=== PATIENT | male | born 1995 | race Caucasian/White ===

== ENCOUNTER 2018-05-14 14:38 | Emergency (ER) | payer MEDICARE, MEDICAID, SELFPAY ==
[2018-05-14 15:14] VITALS: BP 125/79; PULSE 60; RESP 18; TEMP 36.6
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
[2018-05-14] MEDS: Rabies Immune Globulin 1,500 UNIT/5 ML VIAL 1800 UNITS IM (16:20)
--- NOTE | 2018-05-14 16:53 | NUR.NOTE ---
Nursing Note: Faxed to [facility] [employer] who follow up on animal bites the Animal Bite Report form. Roya Miranda Fax [phone]
== END 2018-05-14 16:51 | disposition home or self-care (01) ==
PROVIDERS: Emergency Provider Physician Assistant; PCP Nurse Practitioner
DX: S71.152A Open bite, left thigh, initial encounter (principal); W54.0XXA Bitten by dog, initial encounter
CPT/HCPCS: 90471; 96372; 99284; 90675; 99282

== ENCOUNTER 2018-05-18 01:24 | Outpatient (RCR) | payer MEDICARE, MEDICAID, SELFPAY | END 2018-06-05 23:59 | disposition home or self-care (01) | LOC: INF 01:24 | PROVIDERS: PCP Nurse Practitioner; Visit Provider Internal Medicine Medical Oncology | DX: R69 Illness, unspecified (principal) ==

== ENCOUNTER 2018-05-19 02:03 | Outpatient (RCR) | payer MEDICARE, MEDICAID, SELFPAY | END 2018-06-05 23:59 | disposition home or self-care (01) | LOC: INF 02:03 | PROVIDERS: PCP Nurse Practitioner; Visit Provider Physician Assistant | DX: R69 Illness, unspecified (principal) ==

== ENCOUNTER 2019-03-08 20:09 | Emergency (ER) | payer MEDICARE, MEDICAID, SELFPAY ==
[2019-03-08 20:13] VITALS: BP 135/87; PULSE 101; RESP 18; TEMP 37.1; O2SAT 97
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
== END 2019-03-08 21:19 | disposition home or self-care (01) ==
PROVIDERS: Emergency Provider Nurse Practitioner Family; PCP Nurse Practitioner
DX: S62.111A Displaced fracture of triquetrum [cuneiform] bone, right wrist, initial encounter for closed fracture (principal); S60.221A Contusion of right hand, initial encounter; W22.8XXA Striking against or struck by other objects, initial encounter
CPT/HCPCS: 29125; 99283; 73130; 99282; L3908

== ENCOUNTER 2019-10-07 20:07 | Emergency (ER) | payer MEDICARE, MEDICAID, SELFPAY ==
[2019-10-07 20:11] VITALS: BP 143/92; PULSE 105; RESP 16; TEMP 36.2; O2SAT 96
--- NOTE | 2019-10-07 20:13 | ED.GENADUL_ITS ---
Discharge Plan Disposition Patient Disposition: HOME Condition: Good Discharge Details Chief Complaint: Orthopedic Clinical Impression: Closed fracture of phalanx of ring finger Primary Care Provider: Erica Khan ED Provider: Florentin Muñiz Home Meds and New Rx's Prescriptions: No Action risperidone [Risperdal] 2 MG tablet 2 mg PO DAILY Qty: 90 RF: 0 escitalopram oxalate 20 mg tablet 20 mg PO DAILY Qty: 90 RF: 0 lamotrigine [Lamictal] 25 mg tablet 50 mg PO DAILY RF: 0 methylphenidate HCl 20 mg Tablet 20 mg PO BID RF: 0 Discharge Instructions Instructions: Finger Fracture (ED) Additional Instructions: Please use the splint as directed for the next 1 to 2 weeks. Please take Tylenol and Motrin as needed for pain. As we discussed you do not want to follow-up with the event specialist food demonstrator, however if you do change your mind please contact them at the provided numbers. If you notice any worsening of your symptoms, or any new symptoms such as change in the color of your skin, decreased sensation, worsening pain, vomiting, diarrhea, fever, chills, shortness of breath, chest pain, numbness, weakness, or fainting , please return immediately to the emergency department for reevaluation. Please follow up with your primary care provider as soon as possible for reassessment and reevaluation. As always, it was a pleasure participating in your medical care today. Referrals: Melo Crowley MD [ [facility] STAFF PHYSICIAN] - Jacky Arauz MD [ [facility] STAFF PHYSICIAN] - Brian Toribio MD [ [facility] STAFF PHYSICIAN] - Medical Decision Making 24-year-old male who presents with slight swelling bruising mild pain in his left ring finger in his nondominant hand after punching a wall. Exam demonstrates mild swelling, mild bruising in the finger, no pain in the hand itself, no atypical internal or external rotation on flexion of the finger. Reduced flexion and extension of the distal tip. Neurovascular exam is otherwise intact. Patient does not want any medications for pain at this point. He states that he is here specifically to get an x-ray and that is all. We will get an x-ray, likely splint and reassess. 8:35 PM X-ray results demonstrate fractures of the fourth middle and distal phalanxes. The patient was splinted. Patient continues to refuse pain meds. Patient states extremely specifically that he does not want any follow-up whatsoever, he does not believe in going to see doctors, he does not want to see an event specialist food demonstrator. We will give him the contact numbers for event specialist food demonstrator, but respecting his wishes we will hold off on a formal consult. I discussed my recommendations for orthopedic follow-up as well as primary care provider follow-up. Patient will be discharged home respecting his wishes. Recommend to keep the splint in place for the next 1 to 2 weeks. Discussed red flags which to return. I have extensively reviewed the treatment plan and discharge instructions with the patient and their family. I have addressed all patient concerns at this time. The patient and family was made aware of what symptoms to monitor for that would warrant a return to the emergency department. Discussed the plan with the patient and family, they demonstrate verbal understanding and agreement with our assessment and plan at this time. FINDINGS: Bones/joints: Minimally displaced fractures through dorsal aspects of bases of the 4th middle and distal phalanges. There is nondisplaced fracture through the volar aspect, base of the middle phalanx and volar subluxation of the middle phalanx with respect to the proximal. Soft tissues: Soft tissue swelling. IMPRESSION: Fractures of 4th middle and distal phalanges. Thank you for allowing us to participate in the care of your patient. Dictated and Authenticated by: Carmelo Fitch DO 10/07/2019 8:35 PM Eastern Time ([place] & [place]) HPI General Date/Time Provider Initiated Documentation: 10/07/19 20:08 . HPI Narrative: 24-year-old male presents today for evaluation of pain in his left ring finger. Few hours ago the patient punched a wall in anger. He had pain bruising and swelling in his ring finger on his left hand. He is right-hand dominant. He states that it feels slightly dull in the finger, but he is still able to feel. He has some difficulty bending the most distal aspect of the finger. Patient states that I do not feel pain at all, and so I do not feel pain now. Patient denies any other pain in his hand arm wrist or elbow. He has no other complaints at this time. He has not taken any medications states specifically that he wants no medications for pain right now. No other modifying factors. Related Data Home Medications Medication Instructions Recorded Confirmed risperidone [Risperdal] 2 mg PO DAILY #90 tab-cap 03/22/18 10/07/19 escitalopram oxalate 20 mg tablet 20 mg PO DAILY #90 tab-cap 02/20/19 10/07/19 methylphenidate HCl 20 mg PO BID 03/08/19 10/07/19 lamotrigine 25 mg tablet 50 mg PO DAILY tab 05/18/19 10/07/19 Previous Rx's Medication Instructions Recorded risperidone [Risperdal] 2 mg PO DAILY #90 tab-cap 03/22/18 escitalopram oxalate 20 mg tablet 20 mg PO DAILY #90 tab-cap 02/20/19 Allergies Allergy/AdvReac Type Severity Reaction Status Date / Time No Known Allergies Allergy Unverified 10/07/19 20:15 General MELCHOR: 4 Review of Systems All systems reviewed & are unremarkable except as noted in HPI and below PFSH Social History Smoking/Tobacco Use Status: Current every day Tobacco Type: cigarettes Alcohol Intake: current Alcohol Intake frequency: a few times a month Alcohol type: beer Drug use: Daily Substance use type: does not use Do you feel safe at home: Yes Do you feel safe in your relationship?: Yes Additional Social history: pt is not alone to assess privately Exam Narrative Exam Narrative: 1.Const: Well-nourished, Well-developed, appearing stated age 2.Eyes: PERRL, no conjunctival injection, and symmetrical lids. 3.ENT: Atraumatic external nose and ears. Moist MM. Neck: Symmetric, trachea midline, No thyromegaly. 4.CVS: +S1/S2, No murmurs or gallops. Peripheral pulses 2+ and equal in all ext remities. Brisk capillary refill in all extremities. 5.RESP: Unlabored respiratory effort. Clear to auscultation bilaterally. No wheezes rales or rhonchi 6.GI: Soft, Nontender/Nondistended, No hepatosplenomegaly. No guarding or rebound. 7.MSK: Normocephalic, Extremities w/o deformity or ttp No cyanosis or clubbing. Patient's left ring finger is slightly swollen, mild bruising is noted over the proximal phalanx. Slight swelling throughout, normal flexion and extension at the MCP joint, PIP joint, but notably reduced flexion and extension at the DIP joint. Sensation intact throughout, two-point discrimination present up to 5 mm. Brisk capillary refill is present. No evidence of significant warmth or signs of cellulitis. 8.Skin: Warm, Dry. No rashes or lesions. 9.Neuro: leather toggler II-XII grossly intact. Sensation grossly intact, no focal neurologic deficits. 10.Psych: (AAO) x3. Appropriate mood and affect
--- NOTE | 2019-10-07 20:14 | DI.RAD_ITS ---
EXAM: XR FINGER LT RING INDICATION: punched wall, r/o fx. COMPARISON: No previous for comparison. TECHNIQUE: 2D digital imaging was performed. FINDINGS: There is a mildly displaced fracture involving the posterior aspect of the base of the distal phalanx of the left ring finger. There is a comminuted fracture through the base of the middle phalanx of the left ring finger. The f racture is intra-articular. There is moderate displacement of the dorsal fracture fragment. There is soft tissue swelling of the ring finger. IMPRESSION: Fractures involving the middle and distal phalanges of the left ring finger.
--- NOTE | 2019-10-07 20:33 | NUR.NOTE ---
Nursing Note: applied aluminum splint to left ring finger
--- NOTE | 2019-10-07 20:34 | DI.VRAD_ITS ---
PROCEDURE INFORMATION: Exam: XR Left Finger(s) Exam date and time: 10/07/2019 8:23 PM Age: 24 years old Clinical indication: Pain; Finger(s); Left; Patient HX: Punched wall; Additional info: R/O FX TECHNIQUE: Imaging protocol: XR Left fingers. Views: Minimum 2 views. COMPARISON: No relevant prior studies available. FINDINGS: Bones/joints: Minimally displaced fractures through dorsal aspects of bases of the 4th middle and distal phalanges. There is nondisplaced fracture through the volar aspect, base of the middle phalanx and volar subluxation of the middle phalanx with respect to the proximal. Soft tissues: Soft tissue swelling. IMPRESSION: Fractures of 4th middle and distal phalanges. Dictated and Authenticated by: Carmelo Fitch MD. Ordering:FADUMO Lerma MD
== END 2019-10-07 20:40 | disposition home or self-care (01) ==
LOC: ER 20:45
PROVIDERS: Emergency Provider Student in an Organized Health Care Education/Training Program; PCP Nurse Practitioner
DX: S62.625A Displaced fracture of middle phalanx of left ring finger, initial encounter for closed fracture (principal); S62.635A Displaced fracture of distal phalanx of left ring finger, initial encounter for closed fracture; W22.8XXA Striking against or struck by other objects, initial encounter
CPT/HCPCS: 26720; 73140

== ENCOUNTER 2021-04-23 16:21 | Emergency (ER) | payer MEDICARE, MEDICAID, SELFPAY ==
--- NOTE | 2021-04-23 16:22 | W.ED.GENAD ---
Discharge Plan Disposition Patient Disposition: HOME Condition: Stable Discharge Details Clinical Impression: Dental infection Primary Care Provider: Erica Khan ED Provider: Vasile Kuhn Home Meds and New Rx's Prescriptions: New amoxicillin 875 mg tablet 875 mg PO BID Qty: 20 RF: 0 Continued risperidone [Risperdal] 2 MG tablet 2 mg PO DAILY Qty: 90 RF: 0 escitalopram oxalate 20 mg tablet 20 mg PO DAILY Qty: 90 RF: 0 lamotrigine [Lamictal] 25 mg tablet 50 mg PO DAILY RF: 0 gabapentin 600 mg tablet 600 mg PO QID RF: 0 trazodone 50 mg tablet 50 mg PO QHS RF: 0 methylphenidate HCl 20 mg Tablet 20 mg PO TID RF: 0 Discharge Instructions Instructions: Dental Abscess (ED) Additional Instructions: Amoxicillin as directed. [id number] Tylenol and/or Motrin as directed for discomfort. Cool and/or warm compresses every 2 hours for 20 minutes. Salt water swish and spit as tolerated. Please watch for new or worsening symptoms and return to the ER for any concerns. I do strongly recommend that she quit smoking. I am providing you with the local dental list help expedite outpatient dental care if you are unable to be seen by the dentist who you are hopefully seen by tomorrow. Discharge Data Discharge Date/Time-TO BE ENTERED AT DEPARTURE: 04/23/21 17:01 Medical Decision Making 26-year-old gentleman, smokes 2 packs cigarettes daily, poor decision at baseline, contact his dentist but unable to be seen until obese tomorrow. Reports dental pain, right upper, felt a pop and had a foul taste in his mouth. He is afebrile, no evidence of trismus, airway is patent, appears well, nontoxic. We discussed smoking cessation. There is no clear abscess that requires I&D at this time. Will initiate amoxicillin therapy here in the ER and provided prescription for 875 mg twice daily over the next 10 days. Discussed [id number] medication treatment and I will provide him with a local dentist list to help expedite outpatient care. Standard discharge and return precautions given. This documentation was generated using Med[employer] system, please disregard any oddities of phrase or misspellings. Medical Records Medical records reviewed: Yes I reviewed the patient's medical records. HPI General Mode of arrival: ambulatory. Date/Time Provider Initiated Documentation: 04/23/21 16:21. Limitations to Documentation: no limitations. Information obtained by: patient. HPI Narrative: This is a 26-year-old male, smokes 2 packs of cigarettes daily, past medical history that includes ADHD and bipolar, presents to the ER reporting right upper dental pain over the past 2-3 days. Patient states a few hours ago he felt a pop and had bad taste in his mouth. Patient reports poor dentition at baseline, does not have a dentist as no local dentist or taking new providers. He denies ear pain, fever, difficulty swallowing, speaking, breathing. Patient states this feels like a very typical dental infection is requesting antibiotics. At this time he has no additional questions or concerns. Related Data Home Medications Medication Instructions Recorded Confirmed risperidone [Risperdal] 2 mg PO DAILY #90 tab-cap 03/22/18 04/23/21 escitalopram oxalate 20 mg tablet 20 mg PO DAILY #90 tab-cap 02/20/19 04/23/21 methylphenidate HCl 20 mg PO TID 03/08/19 04/23/21 lamotrigine 25 mg tablet 50 mg PO DAILY tab 05/18/19 04/23/21 amoxicillin 875 mg PO BID #20 tab 04/23/21 gabapentin 600 mg PO QID 04/23/21 04/23/21 trazodone 50 mg PO QHS 04/23/21 04/23/21 Previous Rx's Medication Instructions Recorded risperidone [Risperdal] 2 mg PO DAILY #90 tab-cap 03/22/18 escitalopram oxalate 20 mg tablet 20 mg PO DAILY #90 tab-cap 02/20/19 amoxicillin 875 mg PO BID #20 tab 04/23/21 Allergies Allergy/AdvReac Type Severity Reaction Status Date / Time No Known Allergies Allergy Unverified 04/23/21 16:27 General MELCHOR: 4 Review of Systems Constitutional Constitutional: Denies fever(s) and Denies headache(s) ENT Ears, Nose, Mouth, and Throat: Denies headache(s), Denies neck pain and Denies sore throat Cardiovascular Cardiovascular: Denies chest pain and Denies dyspnea Respiratory Respiratory: Denies dyspnea Musculoskeletal Musculoskeletal: Denies neck pain Integumentary/Breasts Skin/Breast: Denies erythema and Denies rash Neurologic Neurologic: Denies headache(s) [facility] Medical History ADHD Asperger's disorder Bipolar 1 disorder Bipolar disorder (02/11/18) Depressed bipolar disorder Family History Mother No problems noted. Father No problems noted. Social History Smoking/Tobacco Use Status: Current every day Tobacco Type: cigarettes Smoking risk assessment performed?: Yes Alcohol Intake: former Drug use: Daily Substance use type: marijuana Do you feel safe at home: Yes Do you feel safe in your relationship?: Yes Additional Social history: pt is not alone to assess privately Exam Const General: cooperative, healthy appearing, comfortable and no acute distress Orientation: alert and awake HENMT Head: normal to inspection, normocephalic and atraumatic Ears: external ears normal, TM's normal bilaterally and EAC's normal General nose exam: external nose normal Face and sinus: normal facial exam Mouth: oral mucosae normal and moist mucous membranes Teeth and gingiva: poor dentition Teeth image: 1. Point tenderness tooth #3, diffuse mild erythema and swelling to the localized buccal mucosa. No drainage or pointing abscess. No trismus. Airway is patent. Throat: posterior oropharynx normal Eyes General: appearance normal, both eyes and all related structures Conjunctivae: conjunctivae normal Neck Neck: normal visual inspection, full ROM, no lymphadenopathy, trachea midline, supple and nontender Resp Effort & Inspection: normal respiratory effort and able to speak in complete sentences Skin General skin exam: no rashes or lesions noted Neuro General: patient alert, patient awake, moves all extremities and no focal motor deficits Cognition: normal cognition Speech: speech normal Sensory Exam: no sensory deficits noted Psych Appearance: grossly normal Mental Status: mental status grossly normal
[2021-04-23 16:23] VITALS: BP 143/89; PULSE 68; RESP 17; TEMP 36.3; O2SAT 97
== END 2021-04-23 17:01 | disposition home or self-care (01) ==
PROVIDERS: Emergency Provider Physician Assistant; PCP Nurse Practitioner
DX: R68.84 Jaw pain (principal); K04.7 Periapical abscess without sinus
CPT/HCPCS: 99283

== ENCOUNTER 2021-05-23 04:35 | Emergency (ER) | payer MEDICARE, MEDICAID, SELFPAY ==
[2021-05-23 04:42] VITALS: BP 132/74; PULSE 87; RESP 18; TEMP 36.7; O2SAT 97
--- NOTE | 2021-05-23 04:58 | ED.GENADUL_ITS ---
Discharge Plan Disposition Patient Disposition: HOME Condition: Stable Discharge Details Clinical Impression: Nausea and vomiting Primary Care Provider: Erica Khan ED Provider: Valentino Strongs and New Rx's Prescriptions: New ondansetron 4 mg Tablet,Disintegrating 4 mg PO BID PRN (Reason: Nausea And Vomiting) Qty: 3 RF: 0 Continued risperidone [Risperdal] 2 MG tablet 2 mg PO DAILY Qty: 90 RF: 0 escitalopram oxalate 20 mg tablet 20 mg PO DAILY Qty: 90 RF: 0 lamotrigine [Lamictal] 25 mg tablet 50 mg PO DAILY RF: 0 gabapentin 600 mg tablet 600 mg PO QID RF: 0 trazodone 50 mg tablet 50 mg PO QHS RF: 0 methylphenidate HCl 20 mg Tablet 20 mg PO TID RF: 0 Discharge Instructions Instructions: Acute Nausea and Vomiting (ED) Additional Instructions: Covid test is pending. You should quarantine until results has returned. Recommend clear liquid/bland diet until your nausea and vomiting is better c ontrolled. You may use the Zofran as needed for nausea vomiting. Follow-up with primary care next week if not improving. Return to ED for mental status changes, shortness of breath, chest pain, persistent vomiting, abdominal pain. Stand Alone Forms: PENDING COVID-19 TESTING Referrals: Erica Khan, [employer] [Primary Care Provider] - Discharge Data Discharge Date/Time-TO BE ENTERED AT DEPARTURE: 05/23/21 05:32 Medical Decision Making Patient presenting with cough, vomiting, diarrhea for the last few days. Denies fever, shortness of breath, chest pain, abdominal pain. Is not vaccinated against Covid. Exam is unremarkable with normal vitals, clear lungs, benign abdomen. Will symptomatically treat his nausea vomiting with Zofran. Covid swab obtained and sent. Patient to quarantine until results returned. Follow-up with primary care next week if not better. Return to ED for mental status changes, shortness of breath, chest pain, persistent vomiting, abdominal pain. HPI General Mode of arrival: ambulatory . Date/Time Provider Initiated Documentation: 05/23/21 04:58 . Limitations to Documentation: no limitations . Information obtained by: patient and RN notes reviewed . HPI Narrative: Patient presents to the ED with complaint of malaise, vomiting and diarrhea, cough. He denies fever or sweats. He denies chest pain or shortness of breath. Has relatively persistent nausea but denies abdominal pain. He is not vaccinated against Covid. He does smoke regularly but states the cough is new. He denies headache, arthralgias, myalgias, rash. Related Data Home Medications Medication Instructions Recorded Confirmed risperidone [Risperdal] 2 mg PO DAILY #90 tab-cap 18 05/23/21 escitalopram oxalate 20 mg tablet 20 mg PO DAILY #90 tab-cap 02/20/19 05/23/21 methylphenidate HCl 20 mg PO TID 03/08/19 05/23/21 lamotrigine 25 mg tablet 50 mg PO DAILY tab 05/18/19 05/23/21 gabapentin 600 mg PO QID 04/23/21 05/23/21 trazodone 50 mg PO QHS 04/23/21 05/23/21 ondansetron 4 mg PO BID PRN #3 tab 05/23/21 Previous Rx's Medication Instructions Recorded risperidone [Risperdal] 2 mg PO DAILY #90 tab-cap 03/22/18 escitalopram oxalate 20 mg tablet 20 mg PO DAILY #90 tab-cap 02/20/19 ondansetron 4 mg PO BID PRN #3 tab 05/23/21 Allergies Allergy/AdvReac Type Severity Reaction Status Date / Time No Known Allergies Allergy Unverified 05/23/21 04:46 General Stated Complaint: GenMedical MELCHOR: 4 Review of Systems Narrative: As documented in HPI otherwise negative as below. Const: no fever, chills, weakness Resp: no SOB, pleuritic pain CV: no CP, diaphoresis, edema, syncope GI: no abdominal pain Neuro: no headache, numbness, focal weakness, confusion [facility] Medical History ADHD Asperger's disorder Bipolar 1 disorder Bipolar disorder (02/11/18) Depressed bipolar disorder Family History Mother No problems noted. Father No problems noted. Social History Smoking/Tobacco Use Status: Current every day Tobacco Type: cigarettes Smoking risk assessment performed?: Yes Alcohol Intake: former Drug use: Daily Substance use type: marijuana Do you feel safe at home: Yes Do you feel safe in your relationship?: Yes Additional Social history: pt is not alone to assess privately Exam Narrative Exam Narrative: Const: WDWN male in NAD. HEENT: NC/AT. Normal facial exam. TMs clear. OP clear. Eyes: Normal conjunctiva and sclera. Neck: Supple. Trachea midline. Lungs: Normal respiratory effort. Lungs are clear. Cor: RRR without murmur/gallop. Good radial pulses. GI: Soft. NT/ND. No guarding or rebound. Neuro: A+O x 3. Normal speech, mentation, gait. Cranial nerves II - XII grossly intact. No gross motor or sensory deficit. Ext: No C/C/E. Skin: Warm and dry without rash. Course Vital Signs Vital signs: Vital Signs Temperature 98.1 F 05/23/21 04:42 Pulse 87 05/23/21 04:42 Respiratory Rate 18 05/23/21 04:42 Blood Pressure 132/74 05/23/21 04:42 Pulse Oximetry 97 05/23/21 04:42 Temperature 98.1 F 05/23/21 04:42 Temperature Source Oral 05/23/21 04:42 Pulse 87 05/23/21 04:42 Respiratory Rate 18 05/23/21 04:42 Respiratory Effort Non-Labored 05/23/21 04:48 Blood Pressure 132/74 05/23/21 04:42 Blood Pressure Position Sitting 05/23/21 04:42 Pulse Oximetry 97 05/23/21 04:42 Oxygen Delivery Method Room Air 05/23/21 04:42 Oxygen Flow Rate 0 05/23/21 04:42 Pain Level 0 05/23/21 04:42
[2021-05-23 05:11] VITALS: RESP 16
[2021-05-23] MEDS: Ondansetron O.D.T. 4 MG TABEF, 3 TABS/BTL PO (05:22)
[2021-05-23] MEDS: Ondansetron O.D.T. 4 MG TABEF PO (05:22)
[2021-05-24 17:20] LABS: COVID-19 RT-PCR UVMMC Result Negative (Negative)
--- NOTE | 2021-05-26 14:58 | NUR.NOTE ---
patient made aware of negative covid test results.
== END 2021-05-23 05:32 | disposition home or self-care (01) ==
LOC: ER 05:11
PROVIDERS: Emergency Provider Emergency Medicine; PCP Nurse Practitioner
DX: R11.2 Nausea with vomiting, unspecified (principal); R05 Cough; M79.10 Myalgia, unspecified site; F17.210 Nicotine dependence, cigarettes, uncomplicated; Z20.822 Contact with and (suspected) exposure to COVID-19; Z03.818 Encounter for observation for suspected exposure to other biological agents ruled out
CPT/HCPCS: 99283; U0003; U0005

== ENCOUNTER 2022-06-03 10:34 | Emergency (ER) | payer MEDICARE, MEDICAID, SELFPAY ==
[2022-06-03 10:49] VITALS: BP 153/104; PULSE 76; RESP 18; TEMP 36.6; O2SAT 100
--- NOTE | 2022-06-03 12:31 | NUR.NOTE ---
Nursing Note: Dr Gallo went to waiting room to evaluate patient and he was not there. Was asked to put him to [facility]BS @ 2262
== END 2022-06-03 12:29 | disposition left before discharge ==
PROVIDERS: PCP Nurse Practitioner
DX: Z53.21 Procedure and treatment not carried out due to patient leaving prior to being seen by health care provider (principal)

== ENCOUNTER 2022-11-04 17:23 | Emergency (ER) | payer MEDICARE, MEDICAID, SELFPAY ==
[2022-11-04 17:27] VITALS: BP 146/101; PULSE 83; RESP 18; TEMP 36.6; O2SAT 100
--- NOTE | 2022-11-04 17:40 | ED.GENADUL_ITS ---
Discharge Plan Disposition Patient Disposition: Home Discharge Details Clinical Impression: Toothache Primary Care Provider: Erica Khan ED Provider: Niyah Norton Home Meds and New Rx's Prescriptions: New amoxicillin-pot clavulanate 875-125 mg tablet 1 tab PO BID 7 Days Qty: 14 0RF No Action risperidone [Risperdal] 2 MG tablet 2 mg PO DAILY Qty: 90 0RF Rx Instructions: In AM escitalopram oxalate 20 mg tablet 20 mg PO DAILY Qty: 90 0RF Rx Instructions: Every morning, per cydney Beauchamp NP [facility] 02/01/19 will continue pt on this, RH lamotrigine [Lamictal] 25 mg tablet 50 mg PO DAILY Rx Instructions: 04/27/19 Cydney Beauchamp gabapentin 600 mg tablet 600 mg PO QID Patient Comments: TAKE ONE TABLET BY MOUTH FOUR TIMES A DAY trazodone 50 mg tablet 50 mg PO QHS Patient Comments: TAKE 1 TO 2 TABLETS BY MOUTH AT BEDTIME methylphenidate HCl 20 mg Tablet 20 mg PO TID ondansetron 4 mg Tablet,Disintegrating 4 mg PO BID PRN (Reason: Nausea And Vomiting) Qty: 3 0RF Discharge Instructions Instructions: Toothache (ED) Additional Instructions: Use the HurriCaine gel as directed up to 3 times daily apply to the affected area with a Q-tip as needed for pain. Take the antibiotic with yogurt or probiotic twice daily as directed. You do need to see a dentist. Rec is good oral hygiene pressure teeth twice daily, rinse your mouth out after eating or drinking anything. Try to stop smoking if you do smoke. Please take Tylenol or Ibuprofen with food every 4-6 hours as needed for pain and swelling. Follow up with primary care provider in 3-5 days. Return to ED sooner if any worsening or concerns. Increase oral fluids. Stand Alone Forms: Work Release Referrals: Erica Khan NP [Primary Care Provider] - 5 days Discharge Data Discharge Date/Time-TO BE ENTERED AT DEPARTURE: 11/04/22 17:57 Medical Decision Making 27-year-old male with past medical history of ADHD, bipolar, Asperger's disorder presents to the ER with chief complaint of right upper jaw pain and tooth pain which is worsened today. He reports that he has been taking Tylenol with little to no relief. He does have a broken right molar no area of abscess or fluctuance noted. He denies any fever chills or ear pain. He reports he is unable to get into a dentist. He is requesting antibiotics. No other associated symptoms. Augmentin first tablet here and 2 to go and HurriCaine benzocaine gel ordered. We will give dental resources home care and follow-up care. This text was generated using [employer] dictation system, please disregard any oddities of phrase or misspellings. HPI General Mode of arrival: ambulatory . Date/Time Provider Initiated Documentation: 11/04/22 17:24 . Limitations to Documentation: no limitations . Information obtained by: patient, RN notes reviewed and old records reviewed . HPI Narrative: 27-year-old male with past medical history of ADHD, bipolar, Asperger's disorder presents to the ER with chief complaint of right upper jaw pain and tooth pain which is worsened today. He reports that he has been taking Tylenol with little to no relief. He does have a broken right molar no area of abscess or fluctuance noted. He denies any fever chills or ear pain. He reports he is unable to get into a dentist. He is requesting antibiotics. No other associated symptoms. Related Data Home Medications Medication Instructions Recorded Confirmed risperidone 2 mg tablet (Risperdal) 2 mg PO DAILY #90 tab-caps 03/22/18 05/23/21 escitalopram oxalate 20 mg tablet 20 mg PO DAILY #90 tab-caps 02/20/19 05/23/21 methylphenidate HCl 20 mg tablet 20 mg PO TID 03/08/19 05/23/21 lamotrigine 25 mg tablet (Lamictal) 50 mg PO DAILY 05/18/19 05/23/21 gabapentin 600 mg tablet 600 mg PO QID 04/23/21 05/23/21 trazodone 50 mg tablet 50 mg PO QHS 04/23/21 05/23/21 ondansetron 4 mg disintegrating 4 mg PO BID PRN Nausea And 05/23/21 tablet Vomiting #3 tabs amoxicillin 875 mg-potassium 1 tab PO BID 7 days #14 tabs 11/04/22 clavulanate 125 mg tablet Previous Rx's Medication Instructions Recorded risperidone 2 mg tablet (Risperdal) 2 mg PO DAILY #90 tab-caps 03/22/18 escitalopram oxalate 20 mg tablet 20 mg PO DAILY #90 tab-caps 02/20/19 ondansetron 4 mg disintegrating 4 mg PO BID PRN Nausea And 05/23/21 tablet Vomiting #3 tabs amoxicillin 875 mg-potassium 1 tab PO BID 7 days #14 tabs 11/04/22 clavulanate 125 mg tablet Allergies Allergy/AdvReac Type Severity Reaction Status Date / Time No Known Allergies Allergy Unverified 05/23/21 04:46 General Stated Complaint: DentalOral MELCHOR: 4 Review of Systems All systems reviewed & are unremarkable except as noted in HPI and below ENT Ears, Nose, Mouth, and Throat: Reports as per HPI, Reports dental pain, Denies dysphagia, Denies dizziness, Denies otalgia, Denies neck mass and Denies sore throat Cardiovascular Cardiovascular: Denies chest pain Gastrointestinal Gastrointestinal: Denies dysphagia Neurologic Neurologic: Denies dizziness PFSH All Active Problems (Updated 11/04/22 @ 17:45 by Niyah Norton NP) Dental infection (Acute) Nausea and vomiting (Acute) Toothache (Acute) Bipolar disorder (Chronic 02/11/18) Cough (Acute) Attention-deficit hyperactivity disorder, unspecified type (Acute 02/11/18) Closed fracture of phalanx of ring finger (Acute) Medical History ADHD Asperger's disorder Bipolar 1 disorder Depressed bipolar disorder Family History Mother No problems noted. Father No problems noted. Social History Smoking/Tobacco Use Status: Current every day Tobacco Type: cigarettes Smoking risk assessment performed?: Yes Alcohol Intake: former Drug use: Daily Substance use type: marijuana Do you feel safe at home: Yes Do you feel safe in your relationship?: Yes Additional Social history: pt is not alone to assess privately Exam HENMT Teeth and gingiva: fair dentition Teeth image: 1. Eroded tooth through the dentin, no surrounding area of fluctuance or drainage noted. Throat: posterior oropharynx normal, tonsils normal and uvula midline Course Vital Signs Vital signs: Vital Signs Temperature 36.6 C 11/04/22 17:27 Pulse 83 11/04/22 17:27 Respiratory Rate 18 11/04/22 17:27 Blood Pressure 146/101 H 11/04/22 17:27 Pulse Oximetry 100 11/04/22 17:27 Temperature 36.6 C 11/04/22 17:27 Temperature Source Tympanic 11/04/22 17:27 Pulse 83 11/04/22 17:27 Respiratory Rate 18 11/04/22 17:27 Respiratory Effort Normal 11/04/22 17:32 Blood Pressure 146/101 H 11/04/22 17:27 Blood Pressure Position Sitting 11/04/22 17:27 Pulse Oximetry 100 11/04/22 17:27 Oxygen Delivery Method Room Air 11/04/22 17:27 Oxygen Flow Rate 0 11/04/22 17:27 Pain Level 9 11/04/22 17:32
[2022-11-04] MEDS: Benzocaine 20% Gel 30 GM JAR MM (17:45)
[2022-11-04] MEDS: Amoxicillin 875/Clav. 125 TAB PO (17:45)
[2022-11-04] MEDS: Amox. 875/Clav. 125, 2 TABS/BTL 1 TAB PO (17:45)
== END 2022-11-04 17:57 | disposition home or self-care (01) ==
PROVIDERS: Emergency Provider Registered Nurse Emergency; PCP Nurse Practitioner
DX: R68.84 Jaw pain (principal)
CPT/HCPCS: 99283; 99284

== ENCOUNTER 2023-04-10 18:45 | Emergency (ER) | payer MEDICARE, MEDICAID, SELFPAY | END 2023-04-10 18:53 | disposition left against medical advice (07) | DX: Z53.21 Procedure and treatment not carried out due to patient leaving prior to being seen by health care provider (principal) ==

== ENCOUNTER 2023-06-20 14:26 | Emergency (ER) | payer MEDICARE, SELFPAY ==
[2023-06-20 14:29] VITALS: BP 134/74; PULSE 81; RESP 18; TEMP 37.1; O2SAT 95
--- NOTE | 2023-06-20 14:39 | ED.GENADUL_ITS ---
Discharge Plan Disposition Patient Disposition: Home Condition: Improving Discharge Details Chief Complaint: DentalOral Clinical Impression: Dental infection Primary Care Provider: None,None ED Provider: Gilberto Thao Home Meds and New Rx's Prescriptions: No Action amoxicillin-pot clavulanate 875-125 mg tablet 1 tab PO BID 10 Days Qty: 20 0RF Rx Instructions: Take with meal. Take 1 pill every 12 hour chlorhexidine gluconate 0.12 % mouthwash 15 ml mucous membrane BID Qty: 750 0RF risperidone [Risperdal] 2 MG tablet 2 mg PO DAILY Qty: 90 0RF Rx Instructions: In AM escitalopram oxalate 20 mg tablet 20 mg PO DAILY Qty: 90 0RF Rx Instructions: Every morning, per cydney Beauchamp [employer] TECH[employer]ICIAN [facility] 02/01/19 will continue pt on this, RH lamotrigine [Lamictal] 25 mg tablet 50 mg PO DAILY Rx Instructions: 04/27/19 Cydney Beauchamp gabapentin 600 mg tablet 600 mg PO QID Patient Comments: TAKE ONE TABLET BY MOUTH FOUR TIMES A DAY trazodone 50 mg tablet 50 mg PO QHS Patient Comments: TAKE 1 TO 2 TABLETS BY MOUTH AT BEDTIME methylphenidate HCl 20 mg Tablet 20 mg PO TID Discharge Instructions Instructions: Dental Abscess (ED) Additional Instructions: Please continue with your antibiotics and anti-inflammatory medications at home. Please return to the emergency department for any worsening symptoms Medical Decision Making 28-year-old male presents with several days of right facial pain and swelling as well as dental pain, started on Augmentin with improvement of facial swelling however has persistent dental pain. Multiple fractured and carious teeth, no discrete periapical abscess, no signs of deep space infection of head or neck, afebrile nontoxic normal voice tolerating secretions. Will perform apical block with bupivacaine, will dose Toradol IM for anti-inflammatory purposes. Given great improvement of swelling and redness to face patient seems to be responding to antibiotics. Given home care instructions and return precautions 14: 50 patient feeling much better after periapical block. 5 cc of 0.5% bupivacaine. Tolerated well HPI General Date/Time Provider Initiated Documentation: 06/20/23 14:32 . HPI Narrative: 28-year-old male presents with several days of right upper tooth abscess, started on Augmentin within the last couple of days, facial swelling has improved however dental pain is persistent. Related Data Home Medications Medication Instructions Recorded Confirmed risperidone 2 mg tablet (Risperdal) 2 mg PO DAILY #90 tab-caps 03/22/18 06/20/23 escitalopram oxalate 20 mg tablet 20 mg PO DAILY #90 tab-caps 02/20/19 06/20/23 methylphenidate HCl 20 mg tablet 20 mg PO TID 03/08/19 06/20/23 lamotrigine 25 mg tablet (Lamictal) 50 mg PO DAILY 05/18/19 06/20/23 gabapentin 600 mg tablet 600 mg PO QID 04/23/21 06/20/23 trazodone 50 mg tablet 50 mg PO QHS 04/23/21 06/20/23 amoxicillin 875 mg-potassium 1 tab PO BID 10 days #20 tabs 06/18/23 06/20/23 clavulanate 125 mg tablet chlorhexidine gluconate 0.12 % 15 ml mucous membrane BID #750 mL 06/18/23 06/20/23 mouthwash Previous Rx's Medication Instructions Recorded risperidone 2 mg tablet (Risperdal) 2 mg PO DAILY #90 tab-caps 03/22/18 escitalopram oxalate 20 mg tablet 20 mg PO DAILY #90 tab-caps 02/20/19 amoxicillin 875 mg-potassium 1 tab PO BID 10 days #20 tabs 06/18/23 clavulanate 125 mg tablet chlorhexidine gluconate 0.12 % 15 ml mucous membrane BID #750 mL 06/18/23 mouthwash Allergies Allergy/AdvReac Type Severity Reaction Status Date / Time No Known Allergies Allergy Unverified 06/18/23 16:58 General Stated Complaint: DentalOral MELCHOR: 4 Review of Systems Narrative: Review of Systems Constitutional: negative Eyes: negative ENT: Dental pain Cardiovascular: negative Respiratory: negative Gastrointestinal: negative : negative Musculoskeletal: negative Skin: negative Neurologic: negative Psych: negative PFSH All Active Problems (Updated 06/20/23 @ 14:51 by Gilberto Thao MD) Dental infection (Acute) Nausea and vomiting (Acute) Dental infection (Acute) Bipolar disorder (Chronic 02/11/18) Cough (Acute) Attention-deficit hyperactivity disorder, unspecified type (Acute 02/11/18) Closed fracture of phalanx of ring finger (Acute) Medical History Depressed bipolar disorder Bipolar 1 disorder Asperger's disorder ADHD Family History Mother No problems noted. Father No problems noted. Social History Smoking/Tobacco Use Status: Current every day Tobacco Type: cigarettes Smoking risk assessment performed?: Yes Alcohol Intake: former Drug use: Daily Substance use type: marijuana Do you feel safe at home: Yes Do you feel safe in your relationship?: Yes Additional Social history: pt is not alone to assess privately Exam Narrative Exam Narrative: Physical Examination General: alert, awake, cooperative, resting comfortably, no acute distress HEENT: normocephalic, atraumatic; PERRL, EOM intact, conjunctiva normal; no nasal discharge; moist mucous membranes; moderate induration/edema to maxillary soft tissue, multiple fractured and carious teeth, no palpable periapical abscess appreciated, soft submental sublingual and submandibular region, normal voice, no stridor Neck: supple, trachea midline; full ROM Chest: normal to inspection Respiratory: normal respiratory effort, speaking in full sentences Course Vital Signs Vital signs: Vital Signs Temperature 37.1 C 06/20/23 14:29 Pulse 81 06/20/23 14:29 Respiratory Rate 18 06/20/23 14:29 Blood Pressure 134/74 06/20/23 14:29 Pulse Oximetry 95 06/20/23 14:29 Temperature 37.1 C 06/20/23 14:29 Temperature Source Oral 06/20/23 14:29 Pulse 81 06/20/23 14:29 Respiratory Rate 18 06/20/23 14:29 Blood Pressure 134/74 06/20/23 14:29 Pulse Oximetry 95 06/20/23 14:29 Oxygen Delivery Method Room Air 06/20/23 14:29 Oxygen Flow Rate 0 06/20/23 14:29
[2023-06-20] MEDS: Ketorolac 15 MG/ML VIAL IM (14:43)
[2023-06-20 14:44] VITALS: BP 132/84; PULSE 80; RESP 14; TEMP 37; O2SAT 98
== END 2023-06-20 14:58 | disposition home or self-care (01) ==
PROVIDERS: Emergency Provider Emergency Medicine
DX: G50.1 Atypical facial pain (principal)
CPT/HCPCS: 64400; 96372; 99284; J1885

== ENCOUNTER 2023-06-30 17:08 | Emergency (ER) | payer SELFPAY ==
[2023-06-30 17:23] VITALS: BP 168/101; PULSE 80; RESP 22; TEMP 37; O2SAT 99
--- NOTE | 2023-06-30 17:32 | ED.GENADUL_ITS ---
Discharge Plan Disposition Patient Disposition: Home Condition: Stable Discharge Details Clinical Impression: Infected dental caries Primary Care Provider: None,None ED Provider: Florentin Marquez Home Meds and New Rx's Prescriptions: New clindamycin HCl 150 mg capsule 450 mg PO TID 10 Days Qty: 90 0RF lidocaine HCl [Lidocaine Viscous] 2 % solution 10 ml mucous membrane QID PRN (Reason: Dental Pain) Qty: 100 0RF Rx Instructions: swish & spit with 10mL by mouth four times per day as needed for acute dental pain Continued risperidone [Risperdal] 2 MG tablet 2 mg PO DAILY Qty: 90 0RF Rx Instructions: In AM escitalopram oxalate 20 mg tablet 20 mg PO DAILY Qty: 90 0RF Rx Instructions: Every morning, per cydney Beauchamp [employer] TECHNICIAN [facility] 02/01/19 will continue pt on this, RH lamotrigine [Lamictal] 25 mg tablet 50 mg PO DAILY Rx Instructions: 04/27/19 Cydney Beauchamp gabapentin 600 mg tablet 600 mg PO QID Patient Comments: TAKE ONE TABLET BY MOUTH FOUR TIMES A DAY trazodone 50 mg tablet 50 mg PO QHS Patient Comments: TAKE 1 TO 2 TABLETS BY MOUTH AT BEDTIME chlorhexidine gluconate 0.12 % mouthwash 15 ml mucous membrane BID Qty: 750 0RF methylphenidate HCl 20 mg Tablet 20 mg PO TID Discharge Instructions Instructions: Clindamycin (By mouth), Chlorhexidine (Into the mouth), Lidocaine (Into the mouth), Dental Caries (ED), Toothache (ED) Additional Instructions: You were seen in the emergency department for your infected dental caries of yo ur right upper molar, the ED cannot give a definitive dental care for this problem. You need to call any and all available dentists in the area including across state lines to try and get this tooth removed. You state that you are on Augmentin, we have no record of this. Please discontinue the amoxicillin- clavulanic acid antibiotic that you are currently on and take the prescribed clindamycin, the clindamycin will cover MRSA bacteria. I have also sent a prescription for viscous lidocaine that will topically numb the mouth if you swish and spit with this 4 times per day-at mealtimes and bedtime. I have refilled your chlorhexidine antibiotic mouth rinse. Please also swish and spit with warm salty water 3 times per day, bacteria do not like very salty environments and this will help heal the gums. You need to be taking 1000 mg of Tylenol every 6 hours without missing doses, for anti-inflammatory effects please take two 220 mg Aleve tablets twice per day 12 hours apart. Please return to the emergency department for any excessive drooling, any increasing facial swelling with redness, extreme vocal changes, inability to open your jaw. Patient was uncooperative and refused to wait for medicines ordered at discharge as well as discharge packet. Referrals: [facility] [Provider Group] (Needs Urgent Extraction) Discharge Data Discharge Date/Time-TO BE ENTERED AT DEPARTURE: 06/30/23 18:06 Medical Decision Making Assessment: 28 y/o M patient presents with acute on chronic dental pain, chronic poor dentition, known fractured R upper 3rd molar that he attempted self removal, no systemic signs or symptoms of illness. No labs necessary Findings are not consistent with peritonsillar abscess or retropharyngeal abscess, not consistent with epiglottitis or trismus, there appears to be no facial swelling or cellulitis and no submandibular swelling indicating salivary gland obstruction. The patient has diffusely poor dentition and needs to see a dentist on an urgent basis, he is taking Augmentin which I plan to upgrade to clindamycin to cover for MRSA, I plan to prescribe viscous lidocaine to aid in local anesthesia, I recommend he take therapeutic dosing of Tylenol and ibuprofen and refilled his chlorhexidine prescription. I did financial health counselor the patient that the ER cannot provide definitive dental care that he needs to follow-up by calling any and all available dentists including across state line in [place] if he cannot find a dentist locally. Counseled on strict return criteria for worsening signs of infection, vocal changes, excessive drooling, trismus, facial swelling with redness. The patient then left without discharge paperwork or acute medicines ordered for him due to impatience. Total time of visit 43 mins. Medical Records Medical records reviewed: Yes I reviewed the patient's medical records. HPI General Date/Time Provider Initiated Documentation: 06/30/23 17:17 . HPI Narrative: 28-year-old male presents with right upper molar dental pain, he states that his tooth has been fractured chronically and he tried pulling some pieces out. He is currently on Augmentin and has chlorhexidine but is almost out of it, he states he has called all dentist in the area and they cannot see him. He has been taking subtherapeutic dosing of alternating Tylenol and NSAID therapy, he does not have viscous lidocaine. He denies fever, denies facial swelling or redness, denies vocal changes or excessive drooling, denies trismus. Related Data Home Medications Medication Instructions Recorded Confirmed risperidone 2 mg tablet (Risperdal) 2 mg PO DAILY #90 tab-caps 03/22/18 06/20/23 escitalopram oxalate 20 mg tablet 20 mg PO DAILY #90 tab-caps 02/20/19 06/20/23 methylphenidate HCl 20 mg tablet 20 mg PO TID 03/08/19 06/20/23 lamotrigine 25 mg tablet (Lamictal) 50 mg PO DAILY 05/18/19 06/20/23 gabapentin 600 mg tablet 600 mg PO QID 04/23/21 06/20/23 trazodone 50 mg tablet 50 mg PO QHS 04/23/21 06/20/23 chlorhexidine gluconate 0.12 % 15 ml mucous membrane BID #750 mL 06/30/23 mouthwash clindamycin HCl 150 mg capsule 450 mg (3 x 150 mg) PO TID dental 06/30/23 infection 10 days #90 caps lidocaine HCl 2 % mucosal solution 10 ml mucous membrane QID PRN 06/30/23 (Lidocaine Viscous) Dental Pain #100 mL Previous Rx's Medication Instructions Recorded risperidone 2 mg tablet (Risperdal) 2 mg PO DAILY #90 tab-caps 03/22/18 escitalopram oxalate 20 mg tablet 20 mg PO DAILY #90 tab-caps 02/20/19 chlorhexidine gluconate 0.12 % 15 ml mucous membrane BID #750 mL 06/30/23 mouthwash clindamycin HCl 150 mg capsule 450 mg (3 x 150 mg) PO TID dental 06/30/23 infection 10 days #90 caps lidocaine HCl 2 % mucosal solution 10 ml mucous membrane QID PRN 06/30/23 (Lidocaine Viscous) Dental Pain #100 mL Allergies Allergy/AdvReac Type Severity Reaction Status Date / Time No Known Allergies Allergy Unverified 06/18/23 16:58 General Stated Complaint: DentalOral MELCHOR: 4 Review of Systems All systems reviewed & are unremarkable except as noted in HPI and below PFSH All Active Problems (Updated 06/30/23 @ 17:39 by LUIS Pruitt) Infected dental caries (Acute) Dental infection (Acute) Nausea and vomiting (Acute) Dental infection (Acute) Bipolar disorder (Chronic 02/11/18) Cough (Acute) Attention-deficit hyperactivity disorder, unspecified type (Acute 02/11/18) Closed fracture of phalanx of ring finger (Acute) Medical History Depressed bipolar disorder Bipolar 1 disorder Asperger's disorder ADHD Family History Mother No problems noted. Father No problems noted. Social History Smoking/Tobacco Use Status: Current every day Tobacco Type: cigarettes Smoking risk assessment performed?: Yes Alcohol Intake: former Drug use: Daily Substance use type: marijuana Do you feel safe at home: Yes Do you feel safe in your relationship?: Yes Additional Social history: pt is not alone to assess privately Exam Const General: uncomfortable and no acute distress Orientation: alert, awake and oriented x3 HENMT Mouth: oral mucosae normal, lip normal, tongue normal, no audible dysphonia, no drooling, No mouth trauma, no muffled voice, no trismus and No restricted motion Teeth and gingiva: abnormal tooth or associated gingiva, caries and other Other: Right upper posterior molar is fractured, there is scant red blood that is not actively bleeding at the gumline, no visible gingival abscess, no purulent material seen, posterior oropharynx is benign. Resp Effort & Inspection: normal respiratory effort and able to speak in complete sentences Cardio Jugular venous pressure: no JVD Rate: regular rate Pulses: radial pulses present Course Vital Signs Vital signs: Vital Signs Temperature 37.0 C 06/30/23 17: Pulse 80 06/30/23 17: Respiratory Rate 22 06/30/23 17: Blood Pressure 168/101 H 06/30/23 17: Pulse Oximetry 99 06/30/23 17: Temperature 37.0 C 06/30/23 17: Pulse 80 06/30/23 17: Respiratory Rate 22 06/30/23 17:23 Blood Pressure 168/101 H 06/30/23 17:23 Pulse Oximetry 99 06/30/23 17:23 Oxygen Delivery Method Room Air 06/30/23 17:23 Oxygen Flow Rate 0 06/30/23 17:23 Pain Level 10 06/30/23 17:23
== END 2023-06-30 18:06 | disposition home or self-care (01) ==
PROVIDERS: Emergency Provider Physician Assistant
DX: K08.89 Other specified disorders of teeth and supporting structures (principal); K04.7 Periapical abscess without sinus; Z53.29 Procedure and treatment not carried out because of patient's decision for other reasons
CPT/HCPCS: 99283; 99284

== ENCOUNTER 2023-08-08 19:21 | Emergency (ER) | payer MEDICARE, SELFPAY ==
[2023-08-08 19:32] VITALS: BP 144/92; PULSE 79; RESP 18; TEMP 37.3; O2SAT 98
--- NOTE | 2023-08-08 20:26 | ED.GENADUL_ITS ---
Discharge Plan Disposition Patient Disposition: Home Condition: Good Discharge Details Clinical Impression: Acute viral syndrome Primary Care Provider: None,None ED Provider: Jass Hartley Home Meds and New Rx's Prescriptions: No Action risperidone [Risperdal] 2 MG tablet 2 mg PO DAILY Qty: 90 0RF Rx Instructions: In AM escitalopram oxalate 20 mg tablet 20 mg PO DAILY Qty: 90 0RF Rx Instructions: Every morning, per sarah Beauchamp [employer] [facility] 02/01/19 will continue pt on this, RH lamotrigine [Lamictal] 25 mg tablet 50 mg PO DAILY Rx Instructions: 04/27/19 Sarah Beauchamp gabapentin 600 mg tablet 600 mg PO QID Patient Comments: TAKE ONE TABLET BY MOUTH FOUR TIMES A DAY trazodone 50 mg tablet 50 mg PO QHS Patient Comments: TAKE 1 TO 2 TABLETS BY MOUTH AT BEDTIME lidocaine HCl [Lidocaine Viscous] 2 % solution 10 ml mucous membrane QID PRN (Reason: Dental Pain) Qty: 100 0RF Rx Instructions: swish & spit with 10mL by mouth four times per day as needed for acute dental pain chlorhexidine gluconate 0.12 % mouthwash 15 ml mucous membrane BID Qty: 750 0RF methylphenidate HCl 20 mg Tablet 20 mg PO TID Discharge Instructions Instructions: Viral Syndrome (ED) Additional Instructions: Patient to drink plenty of water. Take Motrin and Tylenol as needed for body aches or fever. Stand Alone Forms: Work Release Medical Decision Making Emergent evaluation of viral illness. Patient is otherwise well-appearing, vital signs are stable. Viral testing is negative. Patient has no focal symptoms on examination. Supportive care guidance provided to the patient. A work note was provided. He is discharged in good condition. Medical Records Medical records reviewed: Yes I reviewed the patient's medical records. HPI General Date/Time Provider Initiated Documentation: 08/08/23 19:25 . Limitations to Documentation: no limitations . Information obtained by: patient . HPI Narrative: 28-year-old gentleman with past medical history of bipolar disorder presents for evaluation of headache, body aches and sweating. Reports that symptoms started this morning. He reports that he slept all day and missed work. He has not measured a fever. 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 Related Data Home Medications Medication Instructions Recorded Confirmed risperidone 2 mg tablet (Risperdal) 2 mg PO DAILY #90 tab-caps 03/22/18 06/20/23 escitalopram oxalate 20 mg tablet 20 mg PO DAILY #90 tab-caps 02/20/19 06/20/23 methylphenidate HCl 20 mg tablet 20 mg PO TID 03/08/19 06/20/23 lamotrigine 25 mg tablet (Lamictal) 50 mg PO DAILY 05/18/19 06/20/23 gabapentin 600 mg tablet 600 mg PO QID 04/23/21 06/20/23 trazodone 50 mg tablet 50 mg PO QHS 04/23/21 06/20/23 chlorhexidine gluconate 0.12 % 15 ml mucous membrane BID #750 mL 06/30/23 mouthwash lidocaine HCl 2 % mucosal solution 10 ml mucous membrane QID PRN 06/30/23 (Lidocaine Viscous) Dental Pain #100 mL Previous Rx's Medication Instructions Recorded risperidone 2 mg tablet (Risperdal) 2 mg PO DAILY #90 tab-caps 03/22/18 escitalopram oxalate 20 mg tablet 20 mg PO DAILY #90 tab-caps 02/20/19 chlorhexidine gluconate 0.12 % 15 ml mucous membrane BID #750 mL 06/30/23 mouthwash lidocaine HCl 2 % mucosal solution 10 ml mucous membrane QID PRN 06/30/23 (Lidocaine Viscous) Dental Pain #100 mL Allergies Allergy/AdvReac Type Severity Reaction Status Date / Time No Known Allergies Allergy Unverified 06/18/23 16:58 General Stated Complaint: Sorethroat MELCHOR: 4 PFSH All Active Problems Acute viral syndrome (Acute) Nausea and vomiting (Acute) Dental infection (Acute) Bipolar disorder (Chronic 02/11/18) Cough (Acute) Attention-deficit hyperactivity disorder, unspecified type (Acute 02/11/18) Closed fracture of phalanx of ring finger (Acute) Medical History Depressed bipolar disorder Bipolar 1 disorder Asperger's disorder ADHD Family History Mother No problems noted. Father No problems noted. Social History Smoking/Tobacco Use Status: Current every day Tobacco Type: cigarettes Smoking risk assessment performed?: Yes Alcohol Intake: former Drug use: Daily Substance use type: marijuana Do you feel safe at home: Yes Do you feel safe in your relationship?: Yes Exam Narrative Exam Narrative: Review of Systems: All systems reviewed & are unremarkable except as noted in HPI and below: CONSTITUTIONAL: Alert and oriented Well-developed, no acute distress HEENT: NCAT EYES: PERRL, no conjunctival injection MOUTH Moist MM NECK: Symmetric, trachea midline, No thyromegaly THROAT oropharynx clear CVS: RRR, No murmurs or gallops. RESP: Unlabored respiratory effort, Clear to auscultation bilaterally No wheezes rales or rhonchi GI: Soft, Nontender, Nondistended, No organomegaly MSK: Extremities with full range of motion, no deformity or TTP SKIN: Warm, Dry. No rashes or lesions. NEURO: No focal neurologic deficits. Course Vital Signs Vital signs: Vital Signs Temperature 37.3 C 08/08/23 19:32 Pulse 79 08/08/23 19:32 Respiratory Rate 18 08/08/23 19:32 Blood Pressure 144/92 H 08/08/23 19:32 Pulse Oximetry 98 08/08/23 19:32 Temperature 37.3 C 08/08/23 19:32 Temperature Source Skin 08/08/23 19:32 Pulse 79 08/08/23 19:32 Respiratory Rate 18 08/08/23 19:32 Respiratory Effort Normal 08/08/23 19:35 Blood Pressure 144/92 H 08/08/23 19:32 Blood Pressure Position Sitting 08/08/23 19:32 Pulse Oximetry 98 08/08/23 19:32 Oxygen Delivery Method Room Air 08/08/23 19:32 Oxygen Flow Rate 0 08/08/23 19:32
== END 2023-08-08 20:34 | disposition home or self-care (01) ==
PROVIDERS: Emergency Provider Emergency Medicine
DX: B34.9 Viral infection, unspecified (principal); M79.10 Myalgia, unspecified site; R51.9 Headache, unspecified; R05.9 Cough, unspecified; F31.9 Bipolar disorder, unspecified
CPT/HCPCS: 87426; 99282; 99283

== ENCOUNTER 2023-12-31 05:14 | Emergency (ER) | payer MEDICARE, SELFPAY ==
[2023-12-31 05:18] VITALS: BP 131/70; PULSE 68; RESP 16; TEMP 36.6; O2SAT 98
--- NOTE | 2023-12-31 05:39 | W.ED.GENAD ---
Discharge Plan Disposition Patient Disposition: Home Condition: Improving Discharge Details Clinical Impression: Bronchitis Primary Care Provider: Unknown,Unknown ED Provider: Leroy Samaniego Home Meds and New Rx's Prescriptions: New albuterol sulfate 90 mcg/actuation HFA aerosol inhaler 2 puff inhalation Q6H PRNQty: 8.5 0RF benzocaine-menthol 15-10 mg lozenge 1 giselle PO .Q2 PRN (Reason: sore throat) Qty: 15 0RF ibuprofen 600 mg tablet 600 mg PO Q6H PRN (Reason: fever or pain) Qty: 20 0RF No Action risperidone [Risperdal] 2 MG tablet 2 mg PO DAILY Qty: 90 0RF Rx Instructions: In AM escitalopram oxalate 20 mg tablet 20 mg PO DAILY Qty: 90 0RF Rx Instructions: Every morning, per cydney Beauchamp [employer] [facility] 02/01/19 will continue pt on this, RH lamotrigine [Lamictal] 25 mg tablet 50 mg PO DAILY Rx Instructions: 04/27/19 Cydney Beauchamp gabapentin 600 mg tablet 600 mg PO QID Patient Comments: TAKE ONE TABLET BY MOUTH FOUR TIMES A DAY Discharge Instructions Instructions: Acute Bronchitis (ED) Additional Instructions: You are negative for COVID or influenza. You likely have a cold that has become a mild bronchitis because of your tobacco misuse disorder. You can take 1 ibuprofen tablet, every 6 hours, as needed for fevers or pain. You can take 1 benzocaine-menthol lozenge every 2 hours as needed to help alleviate your sore throat. This is a topical anesthetic that will numb your throat if you suck on the lozenge. You can take 2 puffs on the albuterol inhaler prescribed, every 2-4 hours, as needed to help control your coughing. Expect symptoms to last between 7 to 10 days in total, longer if you smoke more aggressively. Follow-up with your regular primary care doctor for recheck and further management. You can always return to the ER for any new concerns or sudden changes in your health which you feel requires emergency medical attention Discharge Data Discharge Physician: Leroy Samaniego [facility] General Date/Time Provider Initiated Documentation: 12/31/23 05:28. HPI Narrative: The patient is a 28-year-old male, with a past medical history significant for bipolar disorder, Asperger's syndrome, and ADHD, who presents to the emergency department this morning with complaints of coughing, runny nose, nasal congestion, and sore throat that has been ongoing for the last 3 days. The patient tells me that he subjectively feels like he has been having fevers and chills, but has not checked. The patient has not taken any home medications to try to improve his symptoms. The patient is a smoker, but denies having any significant respiratory compromise related to his tobacco misuse disorder. Related Data Home Medications Medication Instructions Recorded Confirmed risperidone 2 mg tablet (Risperdal) 2 mg PO DAILY #90 tab-caps 03/22/18 12/31/23 escitalopram oxalate 20 mg tablet 20 mg PO DAILY #90 tab-caps 02/20/19 12/31/23 lamotrigine 25 mg tablet (Lamictal) 50 mg PO DAILY 05/18/19 12/31/23 gabapentin 600 mg tablet 600 mg PO QID 04/23/21 12/31/23 albuterol sulfate 90 mcg/actuation 2 puff inhalation Q6H PRN #8.5 12/31/23 aerosol inhaler grams benzocaine 15 mg-menthol 10 mg 1 giselle PO .Q2 PRN sore throat #15 ea 12/31/23 lozenges ibuprofen 600 mg tablet 600 mg PO Q6H PRN fever or pain 12/31/23 #20 tabs Previous Rx's Medication Instructions Recorded risperidone 2 mg tablet (Risperdal) 2 mg PO DAILY #90 tab-caps 03/22/18 escitalopram oxalate 20 mg tablet 20 mg PO DAILY #90 tab-caps 02/20/19 albuterol sulfate 90 mcg/actuation 2 puff inhalation Q6H PRN #8.5 12/31/23 aerosol inhaler grams benzocaine 15 mg-menthol 10 mg 1 giselle PO .Q2 PRN sore throat #15 ea 12/31/23 lozenges ibuprofen 600 mg tablet 600 mg PO Q6H PRN fever or pain 12/31/23 #20 tabs Allergies Allergy/AdvReac Type Severity Reaction Status Date / Time No Known Allergies Allergy Unverified 12/31/23 05:23 General Stated Complaint: RespSymp MELCHOR: 4 Exam Const General: cooperative and no acute distress Other: The patient is somnolent and fell asleep twice during my history and evaluation. HENMT Ears: external ears normal, TM's normal bilaterally and EAC's normal General nose exam: external nose normal, no nasal discharge and nasal discharge Face and sinus: sinuses nontender Mouth: oral mucosae normal Throat: posterior oropharynx normal, tonsils normal and uvula midline Resp Effort & Inspection: normal respiratory effort and cough Quality of cough: actively coughing Auscultation: clear to auscultation bilaterally Cardio Rate: regular rate Rhythm: regular rhythm Heart Sounds: S1 normal and S2 normal GI Palpation: soft Auscultation: normal bowel sounds Neuro Other: The patient spontaneously moves all 4 extremities without difficulty. He has a normal speech pattern. He is somnolent but able to be aroused to verbal or tactile stimulation and will track around the room. The patient does fall asleep multiple times during the evaluation. He does not appear to have any focal neurologic deficits. Extrem General: normal to inspection, full ROM and no clubbing, cyanosis or edema Course Vital Signs Vital signs: Vital Signs Temperature 36.6 C 12/31/23 05:18 Pulse 68 12/31/23 05:18 Respiratory Rate 16 12/31/23 05:18 Blood Pressure 131/70 12/31/23 05:18 Pulse Oximetry 98 12/31/23 05:18 Temperature 36.6 C 12/31/23 05:18 Temperature Source Tympanic 12/31/23 05:18 Pulse 68 12/31/23 05:18 Respiratory Rate 16 12/31/23 05:18 Respiratory Effort Normal 12/31/23 05:22 Respiratory Depth Normal 12/31/23 05:22 Blood Pressure 131/70 12/31/23 05:18 Blood Pressure Position Supine 12/31/23 05:18 Pulse Oximetry 98 12/31/23 05:18 Oxygen Delivery Method Room Air 12/31/23 05:18 Oxygen Flow Rate 0 12/31/23 05:18 Pain Level 0 12/31/23 05:18 Medical Decision Making Medical Records Medical records narrative: The patient was seen and examined. He has normal vital signs and a normal oxygen saturation here in the emergency room. The patient does have frequent bronchospastic coughing which is likely reactive airway disease in the setting of a viral infection with concomitant tobacco misuse disorder. The patient will be screened for the viral panel including influenza, COVID, and RSV. The patient be given a nebulizer treatment here in the emergency room to help improve the bronchospasm was given some oral ibuprofen to help improve his headache. Patient will not require admission for ongoing management of his symptoms but could improve with a care plan to help limit his coughing and improve his reactive airway disease. Quality:SDOH Health Related Social Needs: No Data to Display PFSH All Active Problems (Updated 12/31/23 @ 06:26 by Leroy Samaniego MD) Bronchitis (Acute) Nausea and vomiting (Acute) Dental infection (Acute) Bipolar disorder (Chronic 02/11/18) Cough (Acute) Attention-deficit hyperactivity disorder, unspecified type (Acute 02/11/18) Closed fracture of phalanx of ring finger (Acute) Medical History Depressed bipolar disorder Bipolar 1 disorder Asperger's disorder ADHD Family History Mother No problems noted. Father No problems noted. Social History Smoking/Tobacco Use Status: Current every day Tobacco Type: cigarettes Smoking risk assessment performed?: Yes Alcohol Intake: former Drug use: Daily Substance use type: marijuana Do you feel safe at home: Yes Do you feel safe in your relationship?: Yes
[2023-12-31] MEDS: Ibuprofen 600 MG TAB PO (05:41)
[2023-12-31] MEDS: Albuterol/Ipratropium 3 ML UPD VIAL UPD (05:41)
[2023-12-31 06:17] LABS: COVID-19 PCR Negative (Negative); Influenza A PCR Negative (Negative); Influenza B PCR Negative (Negative); RSV PCR Negative (Negative)
[2023-12-31 06:23] LABS: Source Nasopharynx
[2023-12-31 06:39] VITALS: BP 112/68; PULSE 71; RESP 20; TEMP 36.6; O2SAT 98
== END 2023-12-31 06:40 | disposition home or self-care (01) ==
PROVIDERS: Emergency Provider Emergency Medicine Emergency Medical Services
DX: J40 Bronchitis, not specified as acute or chronic (principal); F17.210 Nicotine dependence, cigarettes, uncomplicated
CPT/HCPCS: 87637; 94640; 99283; J7620

== ENCOUNTER 2025-01-09 14:45 | Day surgery (SDC) | payer MEDICARE, MEDICAID, SELFPAY ==
[2025-01-09 14:44] VITALS: PULSE 68; RESP 17
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
[2025-01-09 14:46] VITALS: BP 182/158; PULSE 69; RESP 19
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
[2025-01-09 14:54] LABS: Abs Immature Grans 0.06 10^3/uL (0.0-0.06); Absolute Basophil Count 0.05 10^3/uL (0.0-0.2); Absolute Eosinophil Count 0.04 10^3/uL (0.0-0.7); Absolute Lymphocyte Count 3.46 10^3/uL (1.2-3.4); Absolute Monocyte Count 0.95 10^3/uL (0.1-0.8); Absolute Neutrophil Count 5.99 10^3/uL (1.2-6.7); Basophils % 0.5 %; Eosinophils % 0.4 %; HCT 41.7 % (40.0-50.0); HGB 14.7 g/dL (13.5-17.5); Immature Grans % 0.6 %; Lymphocytes % 32.8 %; MCH 29.3 pg (27.0-33.0); MCHC 35.3 % (32.0-36.0); MCV 83 fL (80-95); MPV 9.1 fL (8.0-11.0); Neutrophils % 56.7 %; Platelet Count 317 10^3/uL (130-400); RBC 5.01 10^6/uL (4.36-5.78); RDW 12.8 % (11.8-14.1); RDW-SD 38.6 fL; WBC 10.55 10^3/uL (4.4-10.8)
[2025-01-09 14:56] VITALS: BP 182/158; PULSE 69; RESP 19
[2025-01-09] MEDS: Omnipaque 350 MG/ML 100 ML BTL IJ (14:56)
[2025-01-09] MEDS: Normal Saline - Diluent 50 ML VIAL IJ (14:58)
[2025-01-09] MEDS: fentaNYL 100 MCG/2 ML VIAL (15:00)
[2025-01-09 15:12] LABS: ALT 29 U/L (16-63); AST 26 U/L (15-37); Albumin 3.9 g/dL (3.4-5.0); Alkaline Phosphatase 88 U/L (46-116); Anion Gap 14.8 mmol/L (3-11); BUN 15 mg/dL (7-18); Bilirubin, Total 0.5 mg/dL (0.2-1.0); CO2 21.2 mmol/L (21.0-32.0); CREATININE 1.2 mg/dL (0.70-1.30); Calcium 9.1 mg/dL (8.5-10.1); Chloride 103 mmol/L (98-107); ETHANOL BLOOD 62.7 mg/dL (<10); Estimated GFR 83.43 (mL/min/1.73m2); Glucose 148 mg/dL (74-106); Lipase 46 U/L (<78); Magnesium 1.9 mg/dL (1.8-2.4); Sodium 139 mmol/L (136-145); Total Protein 7.4 g/dL (6.4-8.2)
[2025-01-09] MEDS: Normal Saline 1,000 ML 1000 ML IV (15:16)
[2025-01-09 15:18] LABS: Lactate 4.5 mmol/L (<or=2.0)
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
[2025-01-09 15:32] LABS: INR 1.1 (0.9-1.1); PTT Activated 21.7 sec (20.6-30.2); Prothrombin Time 11.1 sec (9.1-11.1)
[2025-01-09] MEDS: Tranexamic Acid 1,000 MG/10 ML VIAL 1000 MG IVP (15:32)
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
[2025-01-09] MEDS: PIPERACILLIN/TAZO 4.5 GM in Normal Saline 100 ML IVPB (15:43)
[2025-01-09 16:36] LABS: BE -8 mmol/L (-2-3); HCO3 20 mmol/L (22-26); pCO2 47 mmHg (35-45); pH 7.23 (7.35-7.45); pO2 241 mmHg (80-105); tCO2 18 mmol/L (23-27)
--- NOTE | 2025-01-09 16:36 | NUR.NOTE ---
Report given to NISREEN Benites [place] [facility]
[2025-01-09 16:37] LABS: FIO2 60 %
[2025-01-09 16:38] LABS: sO2 > 99 % (95-98)
[2025-01-09 16:42] LABS: HCT 40.9 % (40.0-50.0); HGB 14.1 g/dL (13.5-17.5)
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
--- NOTE | 2025-01-09 20:12 | NUR.NOTE ---
Addendum entered by Michael Sanchez RN 01/09/25 22:34: Records (pre-op/Operative note) sent to Dr. Guevara at [facility] [place] unit as requested by this RN. Original Note: This RN supervisor of way accessed chart per request for continuation of care and per risk/AOC to provide surgical/triage information. This was for purposes directly related to care and further information. Alfonso Sanchez RN Hospital Outreach Worker
== END 2025-01-09 16:42 | disposition home or self-care (01) ==
LOC: ER 15:25 → SUR 16:42
PROVIDERS: Emergency Medicine; Student in an Organized Health Care Education/Training Program; Emergency Provider Emergency Medicine; PCP Family Medicine; Visit Provider Student in an Organized Health Care Education/Training Program
PROC: (CPT 49000; principal; 2025-01-09 15:30)
DX: S31.644A Puncture wound with foreign body of abdominal wall, left lower quadrant with penetration into peritoneal cavity, initial encounter (principal); S36.490A Other injury of duodenum, initial encounter; S36.892A Contusion of other intra-abdominal organs, initial encounter; X95.8XXA Assault by other firearm discharge, initial encounter; F14.90 Cocaine use, unspecified, uncomplicated; F12.90 Cannabis use, unspecified, uncomplicated; F31.9 Bipolar disorder, unspecified; F17.210 Nicotine dependence, cigarettes, uncomplicated; F41.9 Anxiety disorder, unspecified; F90.1 Attention-deficit hyperactivity disorder, predominantly hyperactive type; F84.5 Asperger's syndrome
CPT/HCPCS: 44120; 00123; 74177; 76604; 76705; 76857; 80053; 82805; 83690; 86850; 86900; 86901; 86920; 70450; 71045; 71260; 72125; 80320; 83605; 83735; 85014; 85018; 85025; 85610; 85730; J0612; J0665; J1100; J2250; J2405; J2543; J2704; J3010; J3490; P9016

== ENCOUNTER 2025-01-26 19:08 | Inpatient (IN) | payer MEDICARE, MEDICAID, SELFPAY ==
[2025-01-26] VITALS (25 sets, daily range): BP systolic 94–142; BP diastolic 45–90; PULSE 65–93; RESP 10–25; TEMP 36.8; O2SAT 94–99
[2025-01-26 20:44] LABS: Lactate 1.1 mmol/L (<or=2.0)
[2025-01-26] MEDS: HYDROmorphone 2 MG/ML SYR 0.5 MG IVP (20:47)
[2025-01-26] MEDS: Ondansetron 4 MG/2 ML VIAL IVP (20:47)
[2025-01-26 20:48] LABS: Abs Immature Grans 0.06 10^3/uL (0.0-0.06); Absolute Basophil Count 0.05 10^3/uL (0.0-0.2); Absolute Eosinophil Count 0.16 10^3/uL (0.0-0.7); Absolute Lymphocyte Count 1.89 10^3/uL (1.2-3.4); Absolute Monocyte Count 0.92 10^3/uL (0.1-0.8); Absolute Neutrophil Count 5.28 10^3/uL (1.2-6.7); Basophils % 0.6 %; Eosinophils % 1.9 %; HCT 31.7 % (40.0-50.0); HGB 11.1 g/dL (13.5-17.5); Immature Grans % 0.7 %; Lymphocytes % 22.6 %; MCH 28.8 pg (27.0-33.0); MCV 82 fL (80-95); MPV 8.8 fL (8.0-11.0); Neutrophils % 63.2 %; RBC 3.85 10^6/uL (4.36-5.78); RDW 12.3 % (11.8-14.1); RDW-SD 36.9 fL; WBC 8.36 10^3/uL (4.4-10.8)
[2025-01-26] MEDS: ACETAMINOPHEN 1,000 MG/100 ML BAG 1000 MG (20:48)
[2025-01-26] MEDS: ACETAMINOPHEN 1,000 MG/100 ML BTL 400 MG IVPB (20:52)
[2025-01-26] MEDS: Omnipaque 350 MG/ML 100 ML BTL 75 ML IJ (21:00)
[2025-01-26] MEDS: Normal Saline - Diluent 50 ML VIAL IJ (21:01)
[2025-01-26 21:06] LABS: ALT 93 U/L (16-63); AST 38 U/L (15-37); Albumin 3.8 g/dL (3.4-5.0); Alkaline Phosphatase 209 U/L (46-116); Anion Gap 7.7 mmol/L (3-11); BUN 13 mg/dL (7-18); Bilirubin, Total 0.7 mg/dL (0.2-1.0); CO2 35.3 mmol/L (21.0-32.0); CREATININE 0.8 mg/dL (0.70-1.30); Calcium 9.8 mg/dL (8.5-10.1); Chloride 86 mmol/L (98-107); Glucose 103 mg/dL (74-106); Lipase 97 U/L (<78); Magnesium 2.2 mg/dL (1.8-2.4); Sodium 129 mmol/L (136-145); Total Protein 8.2 g/dL (6.4-8.2)
[2025-01-26 21:08] LABS: Potassium 2.9 mmol/L (3.5-5.1)
[2025-01-26 21:10] LABS: Platelet Count 789 10^3/uL (130-400)
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
[2025-01-26] MEDS: Lactated Ringers 1,000 ML 1000 ML IV (21:24)
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
[2025-01-26] MEDS: POTASSIUM CHLORIDE 10 MEQ/100 ML BAG 100 MEQ IV_INF (21:25)
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
[2025-01-26] MEDS: HYDROmorphone 2 MG/ML SYR 1 MG IVP (21:33)
[2025-01-26 21:35] LABS: Bilirubin Negative (Negative); Blood Large (Negative); Clarity Clear (Clear); Glucose Negative (Negative); Ketones Negative (Negative); Leukocyte Esterase Small (Negative); Nitrite Negative (Negative); Specific Gravity 1.015 (1.005-1.025)
[2025-01-26 21:44] LABS: Bacteria Rare HPF (Negative); C & S Indicated? Yes; Casts Negative LPF (Negative); Crystals Negative HPF (Negative); Epithelial Cells Rare HPF (Negative); Mucus Negative (Negative); Other Cells Rare Transitional (Negative); RBC 20-50 HPF (0-2)
[2025-01-27] VITALS (36 sets, daily range): BP systolic 106–134; BP diastolic 67–88; PULSE 57–94; RESP 9–20; TEMP 36.4–37.2; O2SAT 90–100
[2025-01-27 00:44] LABS: *AMPHETAMINES SCREEN URINE Negative (Negative); *BARBITURATES SCREEN URINE Negative (Negative); *BENZODIAZEPINES SCREEN URINE Negative (Negative); Cannabinoids THC Positive (Negative); Cocaine Screen,Urine Negative (Negative); METHADONE URINE SCREEN Negative (Negative); OPIATES URINE SCREEN Negative (Negative)
[2025-01-27 00:45] LABS: Tricyclic Antidepressants Negative (Negative)
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
[2025-01-27] MEDS: cefTRIAXone 1 GM/50 ML BAG IVPB (04:22)
[2025-01-27] MEDS: Nicotine 21 MG/24 HR PATCH TD ×2 (04:44→18:14)
[2025-01-27] MEDS: Normal Saline Flush 10 ML SYR IVP ×5 (04:45→19:47)
[2025-01-27] MEDS: POTASSIUM CHLORIDE/0.9% NACL 1,000 ML 150 MEQ IV ×2 (04:46→14:41)
[2025-01-27] MEDS: POTASSIUM CHLORIDE 10 MEQ/100 ML BAG 100 MEQ IV_INF (06:21)
[2025-01-27 06:36] LABS: HCT 29.8 % (40.0-50.0); HGB 10.2 g/dL (13.5-17.5); MCH 28.6 pg (27.0-33.0); MCHC 34.2 % (32.0-36.0); MCV 84 fL (80-95); MPV 8.8 fL (8.0-11.0); RBC 3.57 10^6/uL (4.36-5.78); RDW 12.3 % (11.8-14.1); RDW-SD 37.3 fL; WBC 6.25 10^3/uL (4.4-10.8)
[2025-01-27 07:05] LABS: Platelet Count 675 10^3/uL (130-400)
[2025-01-27 07:07] LABS: ALT 76 U/L (16-63); AST 28 U/L (15-37); Albumin 3.2 g/dL (3.4-5.0); Alkaline Phosphatase 179 U/L (46-116); Anion Gap 3.3 mmol/L (3-11); BUN 11 mg/dL (7-18); Bilirubin, Total 0.5 mg/dL (0.2-1.0); CO2 36.7 mmol/L (21.0-32.0); CREATININE 0.8 mg/dL (0.70-1.30); Calcium 9.3 mg/dL (8.5-10.1); Chloride 91 mmol/L (98-107); Glucose 110 mg/dL (74-106); Magnesium 2.2 mg/dL (1.8-2.4); Potassium 3.1 mmol/L (3.5-5.1); Sodium 131 mmol/L (136-145)
[2025-01-27] MEDS: Enoxaparin 40 MG/0.4 ML SYR SC (09:39)
[2025-01-27] MEDS: Gabapentin 600 MG TAB NG (09:40)
[2025-01-27] MEDS: Aspirin 81 MG CHEW PO (09:40)
[2025-01-27] MEDS: Escitalopram 20 MG TAB JT (09:40)
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
[2025-01-27] MEDS: Gabapentin 600 MG TAB PO (16:03)
[2025-01-27] MEDS: OLANZapine 5 MG TAB 10 MG PO (19:47)
[2025-01-27] MEDS: traZODone 100 MG TAB PO (19:47)
[2025-01-28 02:56] VITALS: BP 116/66; PULSE 72; RESP 18; TEMP 37.1; O2SAT 96
[2025-01-28] MEDS: cefTRIAXone 1 GM/50 ML BAG IVPB (03:53)
[2025-01-28 06:20] LABS: HCT 28.6 % (40.0-50.0); HGB 9.5 g/dL (13.5-17.5); MCH 28.9 pg (27.0-33.0); MCHC 33.2 % (32.0-36.0); MCV 87 fL (80-95); MPV 8.5 fL (8.0-11.0); Platelet Count 553 10^3/uL (130-400); RBC 3.29 10^6/uL (4.36-5.78); RDW 12.9 % (11.8-14.1); RDW-SD 40.2 fL; WBC 5.45 10^3/uL (4.4-10.8)
[2025-01-28 06:39] LABS: ALT 54 U/L (16-63); AST 17 U/L (15-37); Albumin 2.6 g/dL (3.4-5.0); Alkaline Phosphatase 137 U/L (46-116); Anion Gap 2.8 mmol/L (3-11); BUN 8 mg/dL (7-18); Bilirubin, Total 0.3 mg/dL (0.2-1.0); CO2 31.2 mmol/L (21.0-32.0); CREATININE 0.8 mg/dL (0.70-1.30); Calcium 8.7 mg/dL (8.5-10.1); Chloride 104 mmol/L (98-107); Glucose 99 mg/dL (74-106); Magnesium 2.1 mg/dL (1.8-2.4); Sodium 138 mmol/L (136-145); Total Protein 5.8 g/dL (6.4-8.2)
[2025-01-28 06:42] LABS: Potassium 4.3 mmol/L (3.5-5.1)
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
[2025-01-28] MEDS: POTASSIUM CHLORIDE/0.9% NACL 1,000 ML 150 MEQ IV ×2 (07:39)
[2025-01-28 07:46] VITALS: BP 122/67; PULSE 75; RESP 16; TEMP 36.9; O2SAT 98
[2025-01-28] MEDS: Normal Saline Flush 10 ML SYR IVP (08:01)
[2025-01-28] MEDS: Enoxaparin 40 MG/0.4 ML SYR SC (08:01)
[2025-01-28] MEDS: Aspirin 81 MG CHEW PO (08:01)
[2025-01-28] MEDS: Escitalopram 20 MG TAB PO (08:01)
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
--- NOTE | 2025-01-28 17:41 | CMDISCH_ITS ---
Date of service: 01/28/25 Time of Service: 17:41 LACE Index Scoring Tool Questions: Length of Stay (in days): 1 Was the patient admitted via the E.D.?: Yes E.D. Visits: 1 Answers: Total Score: 5 Risk of Readmission: Low Risk Care Management Discharge Plan Reason for Hospitalization: hyponatremia, hypokalemia, abdominal pain Discharge Plan: Isai returned home today with no new services. His mother drove him home via private vehicle. He will follow up with his PCP and discharge plan of care. Patient/Family Education Needs: Review discharge instructions and limitations, discussion of self care needs including ask me three. SDOH Health Related Social Needs: Health related social needs problems finding work (Z56 .9), feeling lonely/isolated (Z60.8), education (Z55.6) Health related social needs details Pt endorses feelin gs of loneliness when away from family and hospitalized far from home. He would like help keeping his current job. Health related social needs details: Pt endorses feelings of loneliness when away from family and hospitalized far from home. He would like help keeping his current job.
== END 2025-01-28 10:58 | disposition home or self-care (01) | DRG 394 ==
LOC: ER 01-27 04:13 → MS 01-27 04:30
PROVIDERS: Admitting Provider Family Medicine; Emergency Provider Emergency Medicine; PCP Family Medicine; Responsible Provider Family Medicine; Visit Provider Family Medicine
DX: K94.13 Enterostomy malfunction (principal); E46 Unspecified protein-calorie malnutrition; E87.1 Hypo-osmolality and hyponatremia; N30.01 Acute cystitis with hematuria; F84.5 Asperger's syndrome; R10.33 Periumbilical pain; E87.6 Hypokalemia; F17.210 Nicotine dependence, cigarettes, uncomplicated; F90.2 Attention-deficit hyperactivity disorder, combined type; Z98.0 Intestinal bypass and anastomosis status; Z79.899 Other long term (current) drug therapy; Z95.828 Presence of other vascular implants and grafts; X50.0XXA Overexertion from strenuous movement or load, initial encounter; S31.63 Puncture wound without foreign body of abdominal wall with penetration into peritoneal cavity; W34.00XD Accidental discharge from unspecified firearms or gun, subsequent encounter; F31.9 Bipolar disorder, unspecified; Z68.26 Body mass index [BMI] 26.0-26.9, adult
CPT/HCPCS: 00123; 36415; 80053; 80307; 83690; 85027; 96361; 96365; 96372; 96375; 96376; 99222; 99285; J1650; 74177; 81003; 81015; 83605; 83735; 85025; 87086; 99223; 99239; J0131; J0696; J1171; J2405; J3480; J3490

== ENCOUNTER 2025-02-01 17:27 | Emergency (ER) | payer MEDICARE, MEDICAID, SELFPAY ==
[2025-02-01 17:41] VITALS: BP 132/84; PULSE 98; RESP 20; TEMP 36.8; O2SAT 96
[2025-02-01 19:08] VITALS: BP 132/84; PULSE 98; RESP 20; TEMP 36.8; O2SAT 96
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
[2025-02-01 19:42] LABS: Abs Immature Grans 0.03 10^3/uL (0.0-0.06); Absolute Basophil Count 0.03 10^3/uL (0.0-0.2); Absolute Eosinophil Count 0.24 10^3/uL (0.0-0.7); Absolute Lymphocyte Count 1.65 10^3/uL (1.2-3.4); Absolute Monocyte Count 0.62 10^3/uL (0.1-0.8); Absolute Neutrophil Count 3.29 10^3/uL (1.2-6.7); Basophils % 0.5 %; Eosinophils % 4.1 %; HCT 30.5 % (40.0-50.0); HGB 9.8 g/dL (13.5-17.5); Immature Grans % 0.5 %; Lymphocytes % 28.2 %; MCH 29.3 pg (27.0-33.0); MCHC 32.1 % (32.0-36.0); MCV 91 fL (80-95); MPV 8.4 fL (8.0-11.0); Monocytes % 10.6 %; Neutrophils % 56.1 %; Platelet Count 324 10^3/uL (130-400); RBC 3.35 10^6/uL (4.36-5.78); RDW 13.7 % (11.8-14.1); RDW-SD 44.4 fL; WBC 5.86 10^3/uL (4.4-10.8)
[2025-02-01 19:55] LABS: ALT 40 U/L (16-63); AST 17 U/L (15-37); Albumin 3.1 g/dL (3.4-5.0); Alkaline Phosphatase 129 U/L (46-116); Anion Gap 4.1 mmol/L (3-11); BUN 11 mg/dL (7-18); Bilirubin, Total 0.2 mg/dL (0.2-1.0); CO2 32.9 mmol/L (21.0-32.0); CREATININE 0.8 mg/dL (0.70-1.30); Chloride 104 mmol/L (98-107); Estimated GFR 121.34 (mL/min/1.73m2); Glucose 92 mg/dL (74-106); Lipase 54 U/L (<78); Sodium 141 mmol/L (136-145); Total Protein 6.6 g/dL (6.4-8.2)
[2025-02-01] MEDS: Omnipaque 350 MG/ML 100 ML BTL 75 ML IJ (20:12)
[2025-02-01] MEDS: Normal Saline - Diluent 50 ML VIAL IJ (20:12)
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
[2025-02-01 21:22] VITALS: BP 129/96; PULSE 74; RESP 20; O2SAT 100
== END 2025-02-01 21:22 | disposition home or self-care (01) ==
PROVIDERS: Emergency Provider Physician Assistant; PCP Family Medicine
DX: R31.0 Gross hematuria (principal); K63.89 Other specified diseases of intestine; F17.210 Nicotine dependence, cigarettes, uncomplicated; Z93.1 Gastrostomy status; Z96.0 Presence of urogenital implants; Z79.82 Long term (current) use of aspirin
CPT/HCPCS: 36415; 80053; 83690; 99285; 74177; 83735; 85025; 99284; J3490

== ENCOUNTER 2025-02-02 22:12 | Emergency (ER) | payer MEDICARE, MEDICAID, SELFPAY ==
[2025-02-02 22:16] VITALS: BP 121/70; PULSE 92; RESP 18; TEMP 36.8; O2SAT 99
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
[2025-02-02 22:19] VITALS: BP 121/70; PULSE 92; RESP 18; TEMP 36.8; O2SAT 99
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
[2025-02-02 22:39] LABS: Bilirubin Negative (Negative); Blood Moderate (Negative); Clarity Turbid (Clear); Glucose Negative (Negative); Ketones Negative (Negative); Leukocyte Esterase Trace (Negative); Nitrite Negative (Negative); Specific Gravity 1.025 (1.005-1.025)
[2025-02-02 22:44] LABS: C & S Indicated? Yes; RBC >50 HPF (0-2)
--- NOTE | 2025-02-02 23:12 | DI.VRAD_ITS ---
PROCEDURE INFORMATION: Exam: XR Abdomen Exam date and time: 02/02/2025 10:48 PM Age: 30 years old Clinical indication: Other: Check L uereteral stent placement TECHNIQUE: Imaging protocol: Radiologic exam of the abdomen. Views: Frontal supine view of the abdomen. 1 View. COMPARISON: CT ABDOMEN PELVIS W 02/01/2025 8:02 PM FINDINGS: Tubes, catheters and devices: Both upper and lower pigtail of the stent appear slightly redundant. surgical suture projects over left mid abdomen. Gastrointestinal tract: Gastrostomy in satisfactory position. Moderate colonic stool burden. Organs: Left double-J ureteral stent in satisfactory position. Bones/joints: Unremarkable. Soft tissues: Metallic foreign bodies projecting over left pelvis, similar to prior. IMPRESSION: 1. Left double-J ureteral stent in satisfactory position. 2. Both upper and lower pigtail of the stent appear slightly redundant. 3. Gastrostomy in satisfactory position. Dictated and Authenticated by: Daysi Medellin MD. Orderin Tae Avelar MD
--- NOTE | 2025-02-05 08:39 | NUR.NOTE ---
Access chart to get the discharge antibiotic for urine culture result. Nursing Note:
== END 2025-02-02 23:21 | disposition home or self-care (01) ==
PROVIDERS: Emergency Provider Emergency Medicine; PCP Family Medicine
DX: R31.0 Gross hematuria (principal); Z93.1 Gastrostomy status; Z96.0 Presence of urogenital implants; Z79.82 Long term (current) use of aspirin
CPT/HCPCS: 99283; 74018; 81003; 81015; 87086

== ENCOUNTER 2025-02-07 23:24 | Emergency (ER) | payer MEDICARE, MEDICAID, SELFPAY ==
[2025-02-07 23:28] VITALS: BP 164/143; PULSE 86; RESP 24; TEMP 36.6; O2SAT 99
[2025-02-07 23:31] VITALS: BP 164/143; PULSE 86; RESP 24; TEMP 36.6; O2SAT 99
[2025-02-07 23:53] LABS: Bilirubin Small (Negative); Blood Large (Negative); Clarity Turbid (Clear); Glucose Negative (Negative); Ketones Trace mg/dL (Negative); Leukocyte Esterase Trace (Negative); Nitrite Negative (Negative); Specific Gravity >= 1.030 (1.005-1.025)
[2025-02-08 00:04] LABS: C & S Indicated? No; RBC >50 HPF (0-2)
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
== END 2025-02-08 02:08 | disposition left against medical advice (07) ==
PROVIDERS: Emergency Provider Student in an Organized Health Care Education/Training Program; PCP Family Medicine
DX: N13.2 Hydronephrosis with renal and ureteral calculous obstruction (principal); Z96.0 Presence of urogenital implants; Z79.82 Long term (current) use of aspirin; Z93.1 Gastrostomy status; F17.210 Nicotine dependence, cigarettes, uncomplicated; Z53.29 Procedure and treatment not carried out because of patient's decision for other reasons
CPT/HCPCS: 99284; 74176; 81003; 81015

== ENCOUNTER 2025-02-12 02:33 | Outpatient (CLI) | payer MEDICARE, MEDICAID, SELFPAY ==
[2025-02-12 15:28] LABS: HGB 11.7 g/dL (13.5-17.5)
[2025-02-12 17:00] LABS: Iron 30 ug/dL (65-175); Total Iron Binding Capacity 215 ug/dL (250-450); Transferrin Sat 14 % (20-55)
[2025-02-12 17:02] LABS: ALT 29 U/L (16-63); AST 16 U/L (15-37); Albumin 3.4 g/dL (3.4-5.0); Alkaline Phosphatase 108 U/L (46-116); Anion Gap 3.8 mmol/L (3-11); BUN 8 mg/dL (7-18); Bilirubin, Total 0.2 mg/dL (0.2-1.0); CO2 32.2 mmol/L (21.0-32.0); CREATININE 0.8 mg/dL (0.70-1.30); Calcium 8.6 mg/dL (8.5-10.1); Chloride 105 mmol/L (98-107); Estimated GFR 121.34 (mL/min/1.73m2); Glucose 74 mg/dL (74-106); Potassium 3.6 mmol/L (3.5-5.1); Sodium 141 mmol/L (136-145); Total Protein 6.4 g/dL (6.4-8.2)
== END 2025-02-12 02:34 | disposition home or self-care (01) ==
LOC: LBO 02:33
PROVIDERS: PCP Family Medicine; Visit Provider Surgery
DX: E44.1 Mild protein-calorie malnutrition (principal)
CPT/HCPCS: 36415; 80053; 83540; 83550; 85018

== ENCOUNTER → 2025-02-13 13:54 | Outpatient (BNVA) | payer MEDICARE, MEDICAID, SELFPAY | PROVIDERS: PCP Family Medicine; Referring Provider Family Medicine; Visit Provider Surgery | DX: Z09 Encounter for follow-up examination after completed treatment for conditions other than malignant neoplasm (principal) | CPT/HCPCS: 99215 ==

== ENCOUNTER 2025-02-17 14:06 | Emergency (ER) | payer MEDICARE, MEDICAID, SELFPAY ==
[2025-02-17] VITALS (18 sets, daily range): BP systolic 133–141; BP diastolic 78–99; PULSE 57–78; RESP 13–22; TEMP 36.6; O2SAT 96–100
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
--- NOTE | 2025-02-17 14:15 | RT.EKG_ITS ---
APPROVED REPORT Exam: Resting ECG Reason for Exam: check qtc Patient Location: E HR:60 bpm ECG Measurements Heart Rate 60 AXIS MA 186 P 51 QRSd 103 QRS 65 QT 401 T 66 QTc 402 Conclusion Sinus rhythm...normal P axis, V-rate 60- 99
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
[2025-02-17] MEDS: Droperidol 5 MG/2 ML VIAL 2.5 MG IVP (14:40)
[2025-02-17] MEDS: Ketorolac 15 MG/ML VIAL IVP (14:41)
[2025-02-17 14:44] LABS: Abs Immature Grans 0.01 10^3/uL (0.0-0.06); Absolute Basophil Count 0.03 10^3/uL (0.0-0.2); Absolute Eosinophil Count 0.23 10^3/uL (0.0-0.7); Absolute Lymphocyte Count 1.64 10^3/uL (1.2-3.4); Absolute Monocyte Count 0.55 10^3/uL (0.1-0.8); Absolute Neutrophil Count 3.25 10^3/uL (1.2-6.7); Basophils % 0.5 %; HCT 38.2 % (40.0-50.0); HGB 12.3 g/dL (13.5-17.5); Immature Grans % 0.2 %; Lymphocytes % 28.7 %; MCH 28.8 pg (27.0-33.0); MCHC 32.2 % (32.0-36.0); MCV 90 fL (80-95); MPV 9.3 fL (8.0-11.0); Monocytes % 9.6 %; Platelet Count 269 10^3/uL (130-400); RBC 4.27 10^6/uL (4.36-5.78); RDW 13.4 % (11.8-14.1); WBC 5.71 10^3/uL (4.4-10.8)
[2025-02-17 14:47] LABS: Bilirubin Negative (Negative); Blood Negative (Negative); Clarity Clear (Clear); Glucose Negative (Negative); Ketones Trace mg/dL (Negative); Leukocyte Esterase Negative (Negative); Nitrite Negative (Negative)
[2025-02-17 14:48] LABS: Bacteria Negative HPF (Negative); C & S Indicated? No; Casts Negative LPF (Negative); Crystals Negative HPF (Negative); Epithelial Cells Negative HPF (Negative); Mucus Negative (Negative); RBC Negative HPF (0-2); WBC Negative HPF (0-5)
[2025-02-17] MEDS: Normal Saline - Diluent 50 ML VIAL IJ (15:00)
[2025-02-17] MEDS: Omnipaque 350 MG/ML 100 ML BTL 75 ML IJ (15:01)
[2025-02-17 15:02] LABS: ALT 32 U/L (16-63); AST 13 U/L (15-37); Albumin 3.7 g/dL (3.4-5.0); Alkaline Phosphatase 105 U/L (46-116); Anion Gap 8.2 mmol/L (3-11); BUN 12 mg/dL (7-18); Bilirubin, Direct 0.1 mg/dL (0.0-0.2); Bilirubin, Total 0.3 mg/dL (0.2-1.0); CO2 31.8 mmol/L (21.0-32.0); CREATININE 0.6 mg/dL (0.70-1.30); Calcium 8.9 mg/dL (8.5-10.1); Chloride 102 mmol/L (98-107); Estimated GFR 132.35 (mL/min/1.73m2); Glucose 93 mg/dL (74-106); Lipase 36 U/L (<78); Magnesium 1.9 mg/dL (1.8-2.4); Potassium 3.8 mmol/L (3.5-5.1); Sodium 142 mmol/L (136-145)
== END 2025-02-17 16:15 | disposition home or self-care (01) ==
PROVIDERS: Emergency Provider Emergency Medicine; PCP Family Medicine
DX: R10.30 Lower abdominal pain, unspecified (principal); R11.2 Nausea with vomiting, unspecified; Z98.890 Other specified postprocedural states
CPT/HCPCS: 99284; 99285; 96374; 96375; 36415; 80053; 83690; 93005; 74177; 81003; 81015; 82248; 83735; 85025; 93010; J1790; J1885; J3490

== ENCOUNTER 2025-02-27 08:08 | Emergency (ER) | payer MEDICARE, MEDICAID, SELFPAY ==
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
[2025-02-27 08:14] VITALS: BP 149/97; PULSE 75; RESP 15; TEMP 36.4; O2SAT 98
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
[2025-02-27 09:19] VITALS: BP 157/87; PULSE 70; RESP 16; O2SAT 99
== END 2025-02-27 09:28 | disposition home or self-care (01) ==
PROVIDERS: Emergency Provider Emergency Medicine; PCP Family Medicine
DX: R07.89 Other chest pain (principal); S80.211A Abrasion, right knee, initial encounter; F17.210 Nicotine dependence, cigarettes, uncomplicated; Z93.1 Gastrostomy status; Z79.82 Long term (current) use of aspirin; V18.4XXA Pedal cycle driver injured in noncollision transport accident in traffic accident, initial encounter; Y92.480 Sidewalk as the place of occurrence of the external cause; Y93.55 Activity, bike riding
CPT/HCPCS: 99283; 71046

== ENCOUNTER 2025-07-21 18:24 | Emergency (ER) | payer MEDICARE, MEDICAID, SELFPAY ==
[2025-07-21 18:30] VITALS: BP 114/76; PULSE 85; RESP 18; TEMP 36.6; O2SAT 95
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
[2025-07-21] MEDS: Ibuprofen 400 MG TAB PO (19:07)
[2025-07-21 19:20] LABS: HCT 41.0 % (40.0-50.0); HGB 13.9 g/dL (13.5-17.5); MCH 29.1 pg (27.0-33.0); MCHC 33.9 % (32.0-36.0); MCV 86 fL (80-95); MPV 9.1 fL (8.0-11.0); Platelet Count 180 10^3/uL (130-400); RBC 4.78 10^6/uL (4.36-5.78); RDW 11.9 % (11.8-14.1); RDW-SD 37.8 fL; WBC 10.29 10^3/uL (4.4-10.8)
[2025-07-21 19:38] LABS: ALT 19 U/L (10-49); AST 17 U/L (<34); Albumin 4.2 g/dL (3.4-5.0); Alkaline Phosphatase 86 U/L (46-116); Anion Gap 4.2 mmol/L (3-11); BUN 13 mg/dL (9-23); Bilirubin, Total 0.40 mg/dL (0.2-1.2); CO2 32.8 mmol/L (20.0-31.0); Calcium 9.0 mg/dL (8.3-10.6); Chloride 104 mmol/L (98-107); Glucose 73 mg/dL (74-106); Potassium 3.6 mmol/L (3.5-5.1); Sodium 141 mmol/L (136-145); Total Protein 6.7 g/dL (5.7-8.2)
[2025-07-21] MEDS: Cyclobenzaprine 10 MG TAB PO (20:29)
[2025-07-21 21:01] VITALS: BP 133/77; PULSE 71; RESP 18; O2SAT 97
[2025-07-23 11:49] LABS: Lyme Ab w Rflx to Lyme Confirm Negative (Negative)
[2025-07-24 12:48] LABS: B. miyamotoi PCR Negative (Negative); Babesia divergens/MO-1 Negative (Negative); Ehrlichia muris eauclairensis Negative (Negative)
== END 2025-07-21 18:57 | disposition home or self-care (01) ==
PROVIDERS: Emergency Provider Emergency Medicine; PCP Family Medicine
DX: M54.50 Low back pain, unspecified (principal); S30.861A Insect bite (nonvenomous) of abdominal wall, initial encounter; W57.XXXA Bitten or stung by nonvenomous insect and other nonvenomous arthropods, initial encounter
CPT/HCPCS: 99283 ×2; 80053; 85027; 87798; 86618